=== PATIENT | male | born 1945 | race Caucasian/White ===

== ENCOUNTER → 2018-06-05 | Outpatient (CLI) | payer MEDICARE, OTHER ==
--- NOTE | 2018-06-05 12:23 | XR ---
EXAMINATION TYPE: XR knee complete RT DATE OF EXAM: 06/05/2018 COMPARISON: 12/11/2014 HISTORY: Pain TECHNIQUE: Four views are submitted. FINDINGS: Postsurgical change involving the right knee. Vascular calcifications noted. IMPRESSION: 1. Postsurgical change
== END ==
LOC: RADXRYALE 11:52
PROVIDERS: ATTEND Physician Assistant Medical
DX: M25.561 Pain in right knee (principal); Z98.890 Other specified postprocedural states

== ENCOUNTER 2018-07-04 10:17 | Day surgery (SDC) | payer MEDICARE, OTHER ==
[2018-07-03 10:22] VITALS: BMI 44.1
[~2018-07-04 10:17] MED LIST: LIDOCAINE 1% 20 ML VIAL (10MG/ML) FOR IV START INTRADERMA PRN
[2018-07-04] MEDS: PHENYLEPHRINE 10% OPHTH DROPS 5 ML BTL OP ONE ×3 (11:27→11:50)
[2018-07-04] MEDS: KETOROLAC 0.5% OPHTH DROPS 5 ML BTL OP ONE ×3 (11:30→11:53)
[2018-07-04] MEDS: CYCLOPENTOLATE 1% OPHTH SOLN 2 ML BTL OP ONE ×3 (11:33→11:56)
[2018-07-04 11:34] VITALS: RESP 16; TEMP 97.9
[2018-07-04 11:53] LABS: Glucose,Whole Blood 111 mg/dL (75-99)
[2018-07-04] MEDS: LACTATED RINGERS 1,000 ML IV SCH ×2 (11:56→12:05)
[2018-07-04] MEDS ORDERED: PROPOFOL 10 MG/ML 20 ML VIAL IV ONE (12:03)
[2018-07-04] MEDS ORDERED: HYALURONATE SODIUM INTRAOCULAR 1 EACH SYRINGE (10MG/ML) INTRAOCULA ONE (12:19)
[2018-07-04] MEDS ORDERED: BALANCED SALT IRRIG SOLN COMB2 15 ML IRRIG.SOLN IRRIGATION ONE (12:19)
[2018-07-04] MEDS ORDERED: EPINEPHrine (PF) 0.5 ML in BALANCED SALT IRRIG SOLN COMB2 500 ML IRRIGATION ONE (12:19)
--- NOTE | 2018-07-04 12:29 | P.OP ---
Date of Procedure: 07/04/18 Procedure(s) Performed: PREOPERATIVE DIAGNOSIS: Cataract, right eye. POSTOPERATIVE DIAGNOSIS: Cataract, right eye. OPERATION: Phacoemulsification of cataract, intraocular lens placement, right eye. DESCRIPTION OF PROCEDURE: The patient was taken to the operating room. Intravenous Propofol was given so as to bring about sedation. The following mixture was given for local anesthesia: 5 mL of 2% lidocaine, 5 mL of 0.75% Marcaine, and 1 mL of Wydase. Approximately 4 mL was injected in the retrobulbar space of the surgical eye. Additional 1 mL was then directed to the temporal area of the surgical eye. This was performed to allow adequate neurological block of the facial muscles. The patient was revived. The patient was prepped and draped in the usual sterile manner for the operative eye. A lid speculum was put into position. The conjunctiva was resected back from the limbus in the 12 o'clock position. Bleeding was controlled with electrocautery. A #69 blade was then used and a half-thickness scleral incision approximately 1-mm posterior to the limbus was made on bare sclera. This was shelved in the clear cornea using a crescent knife. Next a 15-degree blade was used to make a stab incision at the 3 o'clock position at the corneolimbal interface. A keratome blade was then used and the superior wound was extended into the anterior chamber. Viscoelastic was injected into the anterior chamber to maintain its form. A cystotome was used and a continuous anterior capsulotomy was made. Hydrodissection of the lens cortex using a blunt cannula and BSS was performed. A phaco probe was then introduced and a groove extending from 12 to 6 o'clock in the lens was created. A Ck wand was used through the stab incision and used to perform a divide and conquer dismantling of the cataract. An irrigation aspiration probe was utilized and any residual cortex was removed from the eye. Again, viscoelastic was injected into the anterior chamber. An Phillip posterior chamber lens implant was placed in a delivery cartridge and injected into the anterior chamber. A Sinskey hook was utilized to spin the lens into position within the capsular bag. The irrigation and aspiration probe was again introduced and any residual viscoelastic was removed from the eye. BSS was injected via blunt canula into the limbal stab incision and the anterior chamber was re-inflated. The conjunctiva was reapproximated using electrocautery. One drop of 0.25% Timoptic was placed over the corneal along with an antibiotic ophthalmic ointment. Two sterile patches and a Gould eye shield were taped into position. The patient was transported to the recovery room in stable condition. Pathology: none sent Condition: stable Disposition: same day
[2018-07-04 13:13] VITALS: BP 144/77; PULSE 78
[2018-07-04] MEDS ORDERED: BUPIVACAINE (PF) 0.75% 5 ML, HYALURONIDASE, HUMAN RECOMB 150 UNIT, LIDOCAINE 2% (PF) 10... MISCELLANE ONE ×3 (23:00)
[2018-07-04] MEDS ORDERED: GENTAMICIN/PREDNISOL AC OPHTH OINT 3.5GM OPHTHALMIC ONE (23:00)
[2018-07-04] MEDS ORDERED: TIMOLOL 0.5% OPHTH DROPS 5 ML BTL OP ONE (23:00)
== END 2018-07-04 13:30 | disposition home or self-care (01) ==
LOC: OR 10:17
PROVIDERS: ATTEND Ophthalmology
DX: H25.11 Age-related nuclear cataract, right eye (principal); E11.36 Type 2 diabetes mellitus with diabetic cataract; H40.051 Ocular hypertension, right eye; H47.321 Drusen of optic disc, right eye; I10 Essential (primary) hypertension; G47.33 Obstructive sleep apnea (adult) (pediatric); J30.2 Other seasonal allergic rhinitis; Z79.84 Long term (current) use of oral hypoglycemic drugs; Z79.899 Other long term (current) drug therapy; Z88.0 Allergy status to penicillin; Z99.89 Dependence on other enabling machines and devices
CPT/HCPCS: 66984; J3470; J2001; J0171; J2704

== ENCOUNTER 2018-08-08 07:44 | Day surgery (SDC) | payer MEDICARE, OTHER ==
[2018-08-04 15:41] VITALS: BMI 44.7
[~2018-08-08 07:44] MED LIST changes: +BUPIVACAINE (PF) 0.75% 5 ML, HYALURONIDASE, HUMAN RECOMB 150 UNIT, LIDOCAINE 2% (PF) 10... MISCELLANE ONE; +GENTAMICIN/PREDNISOL AC OPHTH OINT 3.5GM OPHTHALMIC ONE; -LIDOCAINE 1% 20 ML VIAL (10MG/ML) FOR IV START INTRADERMA PRN; +TIMOLOL 0.5% OPHTH DROPS 5 ML BTL OP ONE; +TOBRA-DEXAMET 0.3-0.1% OPHTH OINT 3.5 GM TUBE OPHTHALMIC ONE
[2018-08-08] MEDS ORDERED: LACTATED RINGERS 1,000 ML IV SCH (08:12)
[2018-08-08] MEDS ORDERED: HYDROmorphone 0.5 MG/0.5 ML SYRINGE IVP PRN (08:12)
[2018-08-08] MEDS ORDERED: ONDANSETRON 4 MG/2 ML VIAL IVP ONE (08:12)
[2018-08-08] MEDS ORDERED: LIDOCAINE 1% 20 ML VIAL (10MG/ML) FOR IV START INTRADERMA PRN (08:12)
[2018-08-08 08:29] VITALS: RESP 16; TEMP 97.1
[2018-08-08] MEDS: PHENYLEPHRINE 10% OPHTH DROPS 5 ML BTL OP ONE ×3 (08:48→09:09)
[2018-08-08] MEDS: CYCLOPENTOLATE 1% OPHTH SOLN 2 ML BTL OP ONE ×3 (08:51→09:12)
[2018-08-08] MEDS: KETOROLAC 0.5% OPHTH DROPS 5 ML BTL OP ONE ×3 (08:53→09:15)
[2018-08-08 09:38] LABS: Glucose,Whole Blood 120 mg/dL (75-99)
[2018-08-08] MEDS ORDERED: fentaNYL (PF) 50 MCG/ML 2 ML AMP ONE (09:55)
[2018-08-08] MEDS ORDERED: PROPOFOL 10 MG/ML 20 ML VIAL IV ONE (09:55)
[2018-08-08] MEDS ORDERED: MIDAZOLAM 2 MG/2 ML VIAL ONE (09:55)
[2018-08-08] MEDS ORDERED: EPINEPHrine (PF) 0.5 ML in BALANCED SALT IRRIG SOLN COMB2 500 ML IRRIGATION ONE (09:59)
[2018-08-08] MEDS ORDERED: TOBRA-DEXAMET 0.3-0.1% OPHTH OINT 3.5 GM TUBE LEFT EYE ONE (10:00)
[2018-08-08] MEDS ORDERED: HYALURONATE SODIUM INTRAOCULAR 1 EACH SYRINGE (10MG/ML) INTRAOCULA ONE (10:00)
[2018-08-08] MEDS ORDERED: BALANCED SALT IRRIG SOLN COMB2 15 ML IRRIG.SOLN INTRAOCULA ONE (10:00)
--- NOTE | 2018-08-08 10:20 | P.OP ---
Date of Procedure: 08/08/18 Procedure(s) Performed: PREOPERATIVE DIAGNOSIS: Cataract, left eye. POSTOPERATIVE DIAGNOSIS: Cataract, left eye. OPERATION: Phacoemulsification of cataract, intraocular lens placement, left eye. DESCRIPTION OF PROCEDURE: The patient was taken to the operating room. Intravenous Propofol was given so as to bring about sedation. The following mixture was given for local anesthesia: 5 mL of 2% lidocaine, 5 mL of 0.75% Marcaine, and 1 mL of Wydase. Approximately 4 mL was injected in the retrobulbar space of the surgical eye. Additional 1 mL was then directed to the temporal area of the surgical eye. This was performed to allow adequate neurological block of the facial muscles. The patient was revived. The patient was prepped and draped in the usual sterile manner for the operative eye. A lid speculum was put into position. The conjunctiva was resected back from the limbus in the 12 o'clock position. Bleeding was controlled with electrocautery. A #69 blade was then used and a half-thickness scleral incision approximately 1-mm posterior to the limbus was made on bare sclera. This was shelved in the clear cornea using a crescent knife. Next a 15-degree blade was used to make a stab incision at the 3 o'clock position at the corneolimbal interface. A keratome blade was then used and the superior wound was extended into the anterior chamber. Viscoelastic was injected into the anterior chamber to maintain its form. A cystotome was used and a continuous anterior capsulotomy was made. Hydrodissection of the lens cortex using a blunt cannula and BSS was performed. A phaco probe was then introduced and a groove extending from 12 to 6 o'clock in the lens was created. A Kc wand was used through the stab incision and used to perform a divide and conquer dismantling of the cataract. An irrigation aspiration probe was utilized and any residual cortex was removed from the eye. Again, viscoelastic was injected into the anterior chamber. An Phillip posterior chamber lens implant was placed in a delivery cartridge and injected into the anterior chamber. A Sinskey hook was utilized to spin the lens into position within the capsular bag. The irrigation and aspiration probe was again introduced and any residual viscoelastic was removed from the eye. BSS was injected via blunt canula into the limbal stab incision and the anterior chamber was re-inflated. The conjunctiva was reapproximated using electrocautery. One drop of 0.25% Timoptic was placed over the corneal along with an antibiotic ophthalmic ointment. Two sterile patches and a Gould eye shield were taped into position. The patient was transported to the recovery room in stable condition. Pathology: none sent Condition: stable Disposition: same day
[2018-08-08 10:43] VITALS: BP 123/58; PULSE 55
== END 2018-08-08 11:00 | disposition home or self-care (01) ==
LOC: OR 07:44
PROVIDERS: ATTEND Ophthalmology
DX: H25.12 Age-related nuclear cataract, left eye (principal); E11.36 Type 2 diabetes mellitus with diabetic cataract; I10 Essential (primary) hypertension; J30.2 Other seasonal allergic rhinitis; H40.059 Ocular hypertension, unspecified eye; Z88.0 Allergy status to penicillin; Z98.41 Cataract extraction status, right eye; Z96.1 Presence of intraocular lens; Z88.2 Allergy status to sulfonamides; Z88.3 Allergy status to other anti-infective agents; Z79.84 Long term (current) use of oral hypoglycemic drugs; Z79.899 Other long term (current) drug therapy
CPT/HCPCS: 66984; V2632; J2250; J3470; J2001; J0171; J3010; J2704

== ENCOUNTER → 2019-01-18 | Outpatient (CLI) | payer MEDICARE, OTHER ==
--- NOTE | 2019-01-19 08:20 | XR ---
EXAMINATION TYPE: XR shoulder complete LT DATE OF EXAM: 01/18/2019 COMPARISON: NONE HISTORY: Pain TECHNIQUE: Three views are submitted. FINDINGS: The osseous structures are intact. There is no acute fracture or dislocation. Mild hypertrophic plasencia ge of the AC joint. IMPRESSION: 1. Mild AC joint arthropathy.
== END | disposition home or self-care (01) ==
LOC: RADXRYALE 16:24
PROVIDERS: ATTEND Physician Assistant Medical
DX: M19.012 Primary osteoarthritis, left shoulder (principal)

== ENCOUNTER → 2019-05-29 | Outpatient (CLI) | payer MEDICARE, OTHER ==
--- NOTE | 2019-05-29 18:40 | XR ---
Lumbosacral spine HISTORY: Low back pain, trauma 2 weeks prior 5 views of the lumbosacral spine There is multilevel spondylosis present. Ill-defined calcification is present at the level of the L1 transverse process on the left. Suspect there is transitional vertebral body present, only 4 nonrib-b earing lumbar segments. No evident spondylolysis or spondylolisthesis. Lumbar vertebral bodies show p reserved height. Loss of disc height present at L2-3, T12-L1. Sclerosis in the posterior elements is compatible with facet arthropathy. Atherosclerotic vascular calcifications present within the visuali zed aorta. IMPRESSION: No fracture or subluxation. Degenerative disc disease, facet arthropathy, indeterminate c alcification in the left paraspinal location.
== END | disposition home or self-care (01) ==
LOC: RADXRYALE 13:56
PROVIDERS: ATTEND Physician Assistant Medical
DX: M51.37 Other intervertebral disc degeneration, lumbosacral region (principal); M46.97 Unspecified inflammatory spondylopathy, lumbosacral region
CPT/HCPCS: 72110

== ENCOUNTER 2020-12-24 10:41 | Day surgery (SDC) | payer MEDICARE, OTHER ==
[2020-12-18 15:27] VITALS: BMI 41.8
[~2020-12-24 10:41] MED LIST changes: +ALPRAZolam 0.25 MG TAB PO PRN; +ALPRAZolam 0.5 MG TAB PO PRN; +ASPIRIN 325 MG TAB PO ONE; +ATORVASTATIN 80 MG TAB PO ONE; -BUPIVACAINE (PF) 0.75% 5 ML, HYALURONIDASE, HUMAN RECOMB 150 UNIT, LIDOCAINE 2% (PF) 10... MISCELLANE ONE; -GENTAMICIN/PREDNISOL AC OPHTH OINT 3.5GM OPHTHALMIC ONE; +HEPARIN SODIUM,PORCINE 10,000 UNIT in SODIUM CHLORIDE 0.9% 1,000 ML IRRIGATION PRN; +HEPARIN SODIUM,PORCINE 2,500 UNIT in SODIUM CHLORIDE 0.9% 250 ML IRRIGATION PRN; +NITROGLYCERIN SL TABS 0.4 MG TAB SUBLINGUAL PRN; +SODIUM CHLORIDE 0.9% 1,000 ML in EMPTY BAG 1 BAG IV ONE; -TIMOLOL 0.5% OPHTH DROPS 5 ML BTL OP ONE; -TOBRA-DEXAMET 0.3-0.1% OPHTH OINT 3.5 GM TUBE OPHTHALMIC ONE
[2020-12-24 11:03] VITALS: TEMP 97.8
[2020-12-24 11:13] LABS: Glucose,Whole Blood 151 mg/dL (75-99)
[2020-12-24] MEDS ORDERED: fentaNYL (PF) 50 MCG/ML 2 ML AMP ONE (11:36)
[2020-12-24] MEDS ORDERED: BENZOCAINE SPRAY 1 CAN TOPICAL ONE (11:43)
[2020-12-24] MEDS ORDERED: fentaNYL (PF) 50 MCG/ML 2 ML AMP IVP ONE (11:46)
[2020-12-24] MEDS ORDERED: MIDAZOLAM 2 MG/2 ML VIAL IVP ONE ×2 (11:46→12:20)
[2020-12-24] MEDS ORDERED: LIDOCAINE 1% INJ 10MG/ML (20 ML MDV) ONE (11:46)
[2020-12-24 11:52] VITALS: RESP 16
[2020-12-24] MEDS ORDERED: LIDOCAINE 1% INJ 10MG/ML (20 ML MDV) SQ ONE (12:08)
[2020-12-24] MEDS ORDERED: HYDROmorphone 0.5 MG/0.5 ML SYRINGE IVP ONE (12:22)
[2020-12-24] MEDS ORDERED: IOPAMIDOL-370 125ML BTL INJ ONE (12:23)
--- NOTE | 2020-12-24 14:40 | ECHOT ---
TRANSESOPHAGEAL ECHOCARDIOGRAM INDICATION: Aortic stenosis. PROCEDURE NOTE: After obtaining informed consent, transesophageal echocardiogram is performed in left lateral position using an Omni plane probe. Local and IV sedation were obtained by xylocaine spray, 2 mg of Versed and 50 mcg of fentanyl. The patient tolerated the procedure well without any obvious immediate complication. 2D color Doppler evaluation of the valve had been done. Patient received moderate conscious sedation and total sedation time was 10 minutes. FINDINGS: Aortic valve aortic valve is a 3-leaflet valve that appears calcified with right and left coronary cusps fused with restricted leaflet mobility. There is severe restriction in leaflet mobility by planimetry technique. The valve area is 0.6 squared cm suggestive of severe aortic stenosis. There is mild aortic regurgitation noted. Mitral valve appears anatomically normal. There is mild mitral regurgitation noted. Tricuspid valve appears normal. Left ventricle has normal size and systolic function. Left atrium appears enlarged. Right atrium and right ventricle seen within normal limits. Interatrial septum, there is no evidence of [id number] shunt by color-flow Doppler or ikxrs-[id number] shunt by agitated saline contrast study. CONCLUSION: 1. Severe aortic stenosis involving what appears like a tricuspid aortic valve that is calcified and has restricted leaflet mobility. 2. Normal LV function. PLAN: The patient will need aortic valve replacement and patient will need aortic valve replacement. MMODL / IJN: [id number] /
[2020-12-24 15:58] VITALS: BP 127/69; PULSE 68
--- NOTE | 2020-12-24 17:42 | LTR ---
DATE OF SERVICE: 12/24/2020 Dear Martínez: I performed JORI and cardiac catheterization on Gilmar Ray and a detailed procedure note is enclosed for your records. In brief, the transesophageal echo shows severe aortic stenosis involving a 3-leaflet valve that is calcified and shows severe restriction in leaflet mobility. Cardiac catheterization showed a focal stenosis involving the circumflex coronary artery. The plan at this stage is to seek opinion from the surgeon regarding aortic valve replacement with bypass or perform TAVR and percutaneously revascularized the circ. Thank you for allowing me to participate in the care of this pleasant gentleman. Sincerely, VALDO / DIONNAN: [id number] /
--- NOTE | 2020-12-24 17:42 | CC ---
CARDIAC CATHETERIZATION REPORT INDICATION: Severe aortic stenosis. PROCEDURE NOTE: After obtaining informed consent, left heart catheterization and coronary angiogram were performed via the right femoral artery using standard Rojelio catheters. Patient tolerated the procedure well without any obvious immediate complications. The patient had some hip and back pain and received sedation on the table. The patient received moderate conscious sedation. Total sedation time was 15 minutes. FINDINGS: HEMODYNAMICS: Central aortic pressure is 128/76. LEFT VENTRICULOGRAM: Not performed. ANGIOGRAPHIC DATA: LEFT MAIN CORONARY ARTERY: Left main coronary artery is a normal-sized vessel and is free of stenosis. Divides into left anterior descending coronary artery and circumflex coronary artery. LEFT ANTERIOR DESCENDING CORONARY ARTERY: LAD shows mild nonobstructive coronary artery disease. CIRCUMFLEX CORONARY ARTERY: Circumflex coronary artery gives off a large caliber OM branch in and that has a focal 70% stenosis. RIGHT CORONARY ARTERY: Right coronary artery is a large dominant vessel and is free of significant disease. CONCLUSION: Focal stenotic lesion within the OM branch. PLAN: Patient has severe aortic stenosis by transesophageal echo and his recent clinical presentation to me was with congestive heart failure. He needs aortic valve replacement. We are going to get an opinion, whether this is to be done surgically or percutaneously. If it is to be done percutaneously, then we will address the circumflex coronary artery lesion with an angioplasty. If is done surgically, then patient may undergo aortic valve replacement with single-vessel bypass. I am going to get an opinion from a surgeon and an patent drafter. I discussed these issues at length with the patient. He understands and is in agreement with the plans. MMODL / IJN: [id number] /
--- NOTE | 2020-12-25 13:57 | HP ---
HISTORY AND PHYSICAL Gilmar is a 74-year-old gentleman with history of fnr-idroexz-lecdreipe diabetes, hypertension and aortic stenosis, who recently presented to me with shortness of breath and was advised to undergo cardiac catheterization and transesophageal echo primarily to assess the aortic stenosis and sending for aortic valve replacement. His transesophageal echo revealed severe aortic stenosis and the left heart catheterization revealed a significant stenosis involving circumflex coronary artery. I reviewed angiographic data with Dr. Carbone, minister helper and the plan at this stage is to perform angioplasty of circumflex coronary artery and refer the patient and perform aortic valve replacement percutaneously. I discussed these issues with the patient's . They understand and are in agreement with the plans. Patient's predominant symptom at the moment is in the form of shortness of breath with activity. He does not have any angina. He is currently on aspirin, lisinopril, metformin, Actos, and glipizide. I will add a statin to what he is on. The patient will undergo angioplasty next week. Then he will be presented at the TAVR clinic and in the event that he has to have surgical aortic valve replacement, at least he does not need coronary artery bypass. PAST MEDICAL HISTORY: Significant for aortic stenosis, diabetes, hypertension, dyslipidemia. MEDICATIONS: Medications at home included aspirin, multivitamin, metformin, glipizide, lisinopril, Januvia, fish oil. ALLERGIES: Denies any. FAMILY HISTORY: Negative for premature coronary artery disease. SOCIAL HISTORY: Negative for current smoking, EtOH abuse, or drug abuse. REVIEW OF SYSTEMS: Is significant for bilateral leg edema primarily related to venous insufficiency and shortness of breath with activity. LABS: Recent labs on him showed a hemoglobin of 12.6, platelet count is 205. Potassium is 4. Creatinine is 1.1. BNP was elevated at 1000. His lipid profile shows that the LDL cholesterol is 109, LDL cholesterol is 109. ASSESSMENT: 1. Significant coronary artery disease involving circumflex coronary artery. 2. Severe aortic stenosis. PLAN: Patient will undergo angioplasty of the circumflex coronary artery and then will be evaluated for TAVR. MMODL / IJN: [id number] /
== END 2020-12-24 16:57 | disposition home or self-care (01) ==
LOC: CATHCVL 10:41
PROVIDERS: ATTEND Internal Medicine Cardiovascular Disease
DX: I35.0 Nonrheumatic aortic (valve) stenosis (principal); I25.10 Atherosclerotic heart disease of native coronary artery without angina pectoris; Z82.49 Family history of ischemic heart disease and other diseases of the circulatory system; E11.9 Type 2 diabetes mellitus without complications; I10 Essential (primary) hypertension; Z79.899 Other long term (current) drug therapy; Z79.82 Long term (current) use of aspirin; E78.2 Mixed hyperlipidemia; I49.3 Ventricular premature depolarization
CPT/HCPCS: 93312; 93320; 93325; 93454; C1769 ×2; C1760; C1894; J2250; J2001; J3010; J1170; Q9967

== ENCOUNTER 2020-12-29 10:03 | Day surgery (SDC) | payer MEDICARE, OTHER ==
[2020-12-29 11:07] LABS: Glucose,Whole Blood 144 mg/dL (75-99)
[2020-12-29] MEDS ORDERED: SODIUM CHLORIDE 0.9% 1,000 ML IV ONE (11:13)
[2020-12-29 11:15] LABS: Basophils % (A) 0 %; Eosinophils # (A) 0.2 k/uL (0-0.7); Eosinophils % (A) 2 %; HCT 37.5 % (39.0-53.0); HGB 12.7 gm/dL (13.0-17.5); Lymphocytes % (A) 11 %; Mean Platelet Volume 7.6; Monocytes # (A) 0.6 k/uL (0-1.0); Monocytes % (A) 7 %; Neutrophils % (A) 78 %; Platelet Count 171 k/uL (150-450); RBC 3.99 m/uL (4.30-5.90); RDW 12.5 % (11.5-15.5)
[2020-12-29 12:10] LABS: Calcium 9.4 mg/dL (8.4-10.2); Potassium 4.1 mmol/L (3.5-5.1)
[2020-12-29] MEDS ORDERED: VERAPAMIL 2.5 MG/ML 2 ML AMP ONE (12:12)
[2020-12-29] MEDS ORDERED: LIDOCAINE 1% INJ 10MG/ML (20 ML MDV) ONE (12:12)
[2020-12-29] MEDS ORDERED: HYDROmorphone 0.5 MG/0.5 ML SYRINGE IVP ONE ×2 (12:21→12:47)
[2020-12-29] MEDS: MIDAZOLAM 2 MG/2 ML VIAL IV ONE ×2 (12:21→12:32)
[2020-12-29] MEDS ORDERED: LIDOCAINE 1% INJ 10MG/ML (20 ML MDV) SQ ONE (12:30)
[2020-12-29] MEDS ORDERED: VERAPAMIL SYRINGE (5 MG/10 ML) INTRAARTER ONE (12:32)
[2020-12-29] MEDS ORDERED: fentaNYL (PF) 50 MCG/ML 2 ML AMP ONE (12:56)
[2020-12-29] MEDS ORDERED: fentaNYL (PF) 50 MCG/ML 2 ML AMP IV ONE (12:58)
[2020-12-29] MEDS: NITROGLYCERIN 1000MCG/10ML SYRINGE IV ONE ×2 (13:11→13:19)
[2020-12-29] MEDS ORDERED: IOPAMIDOL-370 125ML BTL INJ ONE (13:18)
[2020-12-29] MEDS ORDERED: TICAGRELOR 90 MG TAB ONE ×2 (13:20)
[2020-12-29] MEDS ORDERED: IOPAMIDOL-370 100ML BTL INJ ONE (13:24)
[2020-12-29] MEDS ORDERED: TICAGRELOR 90 MG TAB PO ONE (13:24)
[2020-12-29] MEDS ORDERED: SODIUM CHLORIDE 0.9% 1,000 ML IV SCH (13:30)
[2020-12-29] MEDS ORDERED: MAG HYDROX/AL HYDROX/SIMETH 30 ML CUP PO PRN (13:30)
[2020-12-29] MEDS ORDERED: NITROGLYCERIN SL TABS 0.4 MG TAB SUBLINGUAL PRN (13:30)
[2020-12-29] MEDS ORDERED: ZOLPIDEM 5 MG TAB PO PRN (13:30)
[2020-12-29] MEDS ORDERED: RX INFO: IV CONTRAST WAS GIVEN 1 EACH MISC MISCELLANE PRN (13:30)
[2020-12-29] MEDS ORDERED: ATROPINE SULFATE 0.1 MG/ML 10ML SYRINGE IV PRN (13:30)
[2020-12-29] MEDS ORDERED: ONDANSETRON 4 MG/2 ML VIAL ONE ×2 (13:51→16:30)
[2020-12-29 16:40] LABS: Glucose,Whole Blood 108 mg/dL (75-99)
[2020-12-29] MEDS: NATEGLINIDE PO SCH (17:31)
--- NOTE | 2020-12-29 17:41 | PTCA ---
PERCUTANEOUSTRANS CORORONARY ANGIOGRAPHY DATE OF SERVICE: 12/29/2020 PERFORMING PHYSICIAN: sOcar Carbone MD. PROCEDURE PERFORMED: 1. Successful stenting of the distal left circumflex coronary artery using 2.75 x 18 mm Xience drug-eluting stent with an excellent angiographic result. 2. Successful stenting of the mid left circumflex using 3.0 x 12 mm Xience drug- eluting stent with an excellent angiographic result. INDICATION: This is a 75-year-old gentleman who was diagnosed recently with severe coronary artery disease involving the left circumflex coronary artery. He continues to be symptomatic. He is Dr. Carl's patient. Because of that, PCI of the left circumflex was advised. APPROACH: Right radial artery. COMPLICATION: None. LEVEL OF SEDATION: Moderate with sedation length of 50 minutes. PROCEDURE: After obtaining an informed consent, the patient was brought to the cardiac woodworking shop laborer. The right radial artery was cannulated using micropuncture technique and a micropuncture wire passed easily. Then I placed a 6-Moldovan sheath at the right radial artery. Anticoagulation was initiated and continued using heparin with continuous ACT monitoring throughout the procedure. I gave the patient also at the beginning of the procedure, 2 mg of verapamil IA. Subsequently, I did engage the left main using a JL3.5 guiding catheter. After that I did wire the left circumflex using a run-through wire. Attempting advancing stent for direct stenting was unsuccessful with advancing the stent from the left main to the left circumflex coronary artery. At that point, I did use Godzilla and with that I was able to get the stent to the left circumflex but the stent would not cross the lesion. Because of that, the stent was pulled out. I did balloon angioplasty initially using 1.5 mm balloon and subsequently using 2.0 mm balloon. Again advancing the stent was unsuccessful. After that I did pull the Godzilla out and I placed a sophia wire which was an Ironman. With that I was able to get the stent over the whisper over the run-through wire with an Ironman as a sophia wire to the left circumflex where the stent was positioned under fluoroscopy guidance and deployed under 14 atmospheres for 20 seconds. The following angiogram showed good angiographic results at the lesion but proximal to the lesion, there was a hazy area that appeared to be in the range of 50% to 60%. I decided to cover. I deployed a 3 0 x 12 mm another stent there. The following angiogram showed excellent angiographic results and the procedure was completed without any complication. POSTPROCEDURE MANAGEMENT: 1. Dual anti-platelet therapy. 2. Aggressive cholesterol control. 3. Risk factor modifications. 4. Follow up with the patient. VALDO / CHRISTIANO: [id number] /
[2020-12-29] MEDS: glipiZIDE 10 MG TAB PO SCH (17:58)
[2020-12-29] MEDS: ASCORBIC ACID 500 MG TAB PO SCH ×2 (17:58→20:07)
[2020-12-29] MEDS ORDERED: NON FORMULARY DRUG (Omega-3 Fatty Acids/Fish Oil [Fish Oil 1,000 Mg Softgel] 1 EACH Capsul PO SCH (18:00)
[2020-12-29] MEDS ORDERED: diphenhydrAMINE 25 MG CAP PO PRN (18:18)
[2020-12-29 19:51] LABS: Glucose,Whole Blood 165 mg/dL (75-99)
[2020-12-29] MEDS: TICAGRELOR 90 MG TAB PO SCH (20:07)
[2020-12-29] MEDS ORDERED: PRAVASTATIN SODIUM 20 MG TAB PO SCH (21:00)
[2020-12-29] MEDS ORDERED: NON FORMULARY DRUG (Cinnamon Bark [Cinnamon] 500 MG Capsule) PO SCH (21:00)
[2020-12-30 06:07] LABS: Glucose,Whole Blood 84 mg/dL (75-99)
[2020-12-30] MEDS: NATEGLINIDE PO SCH (06:13)
[2020-12-30] MEDS: glipiZIDE 10 MG TAB PO SCH (06:14)
[2020-12-30 08:19] VITALS: BP 141/67; PULSE 61; RESP 16; TEMP 98
[2020-12-30] MEDS ORDERED: LUTEIN 6 MG PO SCH (09:00)
[2020-12-30] MEDS ORDERED: GARLIQUE PO SCH (09:00)
[2020-12-30] MEDS ORDERED: FERROUS SULFATE 325 MG TAB PO SCH (09:00)
[2020-12-30] MEDS ORDERED: MULTIVITAMINS, THERA 1 EACH TAB PO SCH (09:00)
[2020-12-30] MEDS ORDERED: lisinopriL 20 MG TAB PO SCH (09:00)
[2020-12-30] MEDS ORDERED: LINAGLIPTIN 5 MG TABLET PO SCH (09:00)
[2020-12-30] MEDS ORDERED: NON FORMULARY DRUG (Cranberry Fruit Extract [Cranberry] 500 MG Tablet) PO SCH (09:00)
[2020-12-30] MEDS ORDERED: LORATADINE 10 MG TAB PO SCH (09:00)
[2020-12-30] MEDS ORDERED: CYANOCOBALAMIN 500 MCG TAB PO SCH (09:00)
[2020-12-30] MEDS ORDERED: PIOGLITAZONE 45 MG TAB PO SCH (09:00)
[2020-12-30] MEDS ORDERED: ASPIRIN 81 MG PO SCH (09:00)
[2020-12-30] MEDS ORDERED: FUROSEMIDE 20 MG TAB PO SCH (09:00)
[2020-12-30] MEDS ORDERED: POTASSIUM CHLORIDE ER 10 MEQ TAB.ER.PRT PO SCH (09:00)
[2020-12-30] MEDS ORDERED: NON FORMULARY DRUG (Ubidecarenone [Co Q-10] 100 MG Capsule) PO SCH (09:00)
[2020-12-30] MEDS: TICAGRELOR 90 MG TAB PO SCH (09:06)
[2020-12-30] MEDS: ASCORBIC ACID 500 MG TAB PO SCH (09:06)
[2020-12-30] MEDS ORDERED: CLOPIDOGREL 75 MG TAB PO STA (10:11)
[2020-12-30 10:12] VITALS: BMI 40.3
--- NOTE | 2020-12-30 11:05 | P.DS ---
Providers Attending physician: Oscar Carbone Consults: 12/29/20 13:30 Consult Physician Routine Consulting Provider: [facility] Consult Reason/Comments: Post Interventional patient Do you want consulting provider notified?: Already Contacted [facility]: [facility] Course: This is a 75-year-old male, patient of Dr. Whaley, who underwent cardiac catheterization yesterday with Dr. Francisco with PCI to the circumflex. Patient examined at the bedside. Patient denies chest pain or pressure. He denies shortness of breath. Patients brilinta was $100 a month. The patient was switched to aspirin and plavix. Right radial cath site with pulse present. Patient is stable for discharge home today. Please see EMR for further hospital course details. Discharge Diagnosis 1. CAD, s/p PCI to circumflex Nurse practitioner note has been reviewed by physician. Signing provider agrees with the documented findings, assessment, and plan of care. Plan - Discharge Summary Discharge Rx Participant: No New Discharge Prescriptions: New Clopidogrel Bisulfate [Plavix] 75 mg PO DAILY #90 tab No Action Multivitamins, Thera [Multivitamin (formulary)] 1 tab PO DAILY Ascorbic Acid [Vitamin C] 1,000 mg PO TID Ferrous Sulfate [Feosol] 325 mg PO DAILY sitaGLIPtin [Januvia] 100 mg PO DAILY Pioglitazone [Actos] 45 mg PO DAILY Nateglinide [Starlix] 120 mg PO AC-TID glipiZIDE [Glucotrol] 10 mg PO AC-BID lisinopriL 20 mg PO QAM metFORMIN HCL 1,000 mg PO BID Ubidecarenone [Co Q-10] 100 mg PO DAILY [place]ba-3 Fatty Acids/Fish Oil [Fish Oil 1,000 mg Softgel] 1 each PO QID Lutein 6 mg PO DAILY Garlique 1 tab PO DAILY Cyanocobalamin (Vitamin B-12) [Vitamin B-12] 1,000 mcg PO DAILY Cranberry Fruit Extract [Cranberry] 500 mg PO DAILY Cinnamon Bark [Cinnamon] 1,000 mg PO BID Aspirin [Adult Low Dose Aspirin EC] 81 mg PO DAILY Furosemide [Lasix] 20 mg PO DAILY Loratadine [Claritin] 10 mg PO DAILY Potassium Chloride ER [K-Dur 10] 10 meq PO DAILY Pravastatin Sodium [Pravachol] 10 mg PO HS Discharge Medication List Ascorbic Acid [Vitamin C] 1,000 mg PO TID 01/14/19 [History] Aspirin [Adult Low Dose Aspirin EC] 81 mg PO DAILY 07/03/18 [History] Cinnamon Bark [Cinnamon] 1,000 mg PO BID 07/03/18 [History] Cranberry Fruit Extract [Cranberry] 500 mg PO DAILY 07/03/18 [History] Cyanocobalamin (Vitamin B-12) [Vitamin B-12] 1,000 mcg PO DAILY 07/03/18 [History] Ferrous Sulfate [Feosol] 325 mg PO DAILY 07/03/18 [History] Garlique 1 tab PO DAILY 07/03/18 [History] Lutein 6 mg PO DAILY 07/03/18 [History] Multivitamins, Thera [Multivitamin (formulary)] 1 tab PO DAILY 07/03/18 [History] Nateglinide [Starlix] 120 mg PO AC-TID 07/03/18 [History] [place]-3 Fatty Acids/Fish Oil [Fish Oil 1,000 mg Softgel] 1 each PO QID 07/03/18 [History] Pioglitazone [Actos] 45 mg PO DAILY 07/03/18 [History] Ubidecarenone [Co Q-10] 100 mg PO DAILY 07/03/18 [History] glipiZIDE [Glucotrol] 10 mg PO AC-BID 07/03/18 [History] lisinopriL 20 mg PO QAM 07/03/18 [History] metFORMIN HCL 1,000 mg PO BID 07/03/18 [History] sitaGLIPtin [Januvia] 100 mg PO DAILY 07/03/18 [History] Furosemide [Lasix] 20 mg PO DAILY 12/18/20 [History] Potassium Chloride ER [K-Dur 10] 10 meq PO DAILY 12/18/20 [History] Loratadine [Claritin] 10 mg PO DAILY 12/25/20 [History] Pravastatin Sodium [Pravachol] 10 mg PO HS 12/25/20 [History] Clopidogrel Bisulfate [Plavix] 75 mg PO DAILY #90 tab 12/30/20 [Rx] Follow up Appointment(s)/Referral(s): Rishi Carl MD [STAFF PHYSICIAN] - 1 Week Patient Instructions/Handouts: Coronary Intravascular Stent Placement (DC)
== END 2020-12-30 12:54 | disposition home or self-care (01) ==
LOC: CATHCVL 10:03 → 3SCARD 16:11 → CATHCVL 12-30 12:54
PROVIDERS: ATTEND Internal Medicine Interventional Cardiology
DX: I25.10 Atherosclerotic heart disease of native coronary artery without angina pectoris (principal); I35.0 Nonrheumatic aortic (valve) stenosis; I11.0 Hypertensive heart disease with heart failure; I50.42 Chronic combined systolic (congestive) and diastolic (congestive) heart failure; E78.5 Hyperlipidemia, unspecified; E11.9 Type 2 diabetes mellitus without complications; Z82.49 Family history of ischemic heart disease and other diseases of the circulatory system; Z79.84 Long term (current) use of oral hypoglycemic drugs; Z79.82 Long term (current) use of aspirin; Z79.818 Long term (current) use of other agents affecting estrogen receptors and estrogen levels; Z88.0 Allergy status to penicillin
CPT/HCPCS: 80048; 82565; 85025; C9600; C1769 ×4; C1887 ×2; C1894; C1725 ×2; C1874; J2250; J2405; J2001; J3010; J1644; J1170; Q9967 ×2

== ENCOUNTER → 2021-02-19 | Outpatient (CLI) | payer MEDICARE, OTHER ==
[2021-02-19 09:33] LABS: INR 0.9 (<1.2); Partial Thromboplastin Time 26.1 sec (22.0-30.0); Prothrombin Time 10.1 sec (9.0-12.0)
[2021-02-19 09:34] LABS: Appearance,Urine Clear (Clear); Bilirubin,Urine Negative (Negative); Blood,Urine Negative (Negative); Color,Urine Light Yellow; Glucose,Urine (UA) Negative (Negative); Hyaline Casts,Urine 9 /lpf (0-2); Ketones,Urine Negative (Negative); Leukocyte Esterase,Urine Moderate (Negative); Nitrite,Urine Negative (Negative); Protein,Urine Negative (Negative); RBC,Urine <1 /hpf (0-5); Specific Gravity,Urine 1.008 (1.001-1.035); Squamous Epithelial Cell,Urine <1 /hpf (0-4); Urobilinogen,Urine <2.0 mg/dL (<2.0); WBC,Urine 4 /hpf (0-5)
[2021-02-19 10:05] LABS: Basophils % (A) 0 %; Eosinophils # (A) 0.2 k/uL (0-0.7); Eosinophils % (A) 4 %; HCT 36.2 % (39.0-53.0); Lymphocytes # (A) 0.9 k/uL (1.0-4.8); Lymphocytes % (A) 17 %; MCH 31.7 pg (25.0-35.0); MCHC 33.2 g/dL (31.0-37.0); MCV 95.5 fL (80.0-100.0); Mean Platelet Volume 7.6; Monocytes # (A) 0.4 k/uL (0-1.0); Monocytes % (A) 8 %; Neutrophils # (A) 3.6 k/uL (1.3-7.7); Neutrophils % (A) 69 %; Platelet Count 184 k/uL (150-450); RBC 3.79 m/uL (4.30-5.90); RDW 12.8 % (11.5-15.5); WBC 5.2 k/uL (3.8-10.6)
[2021-02-19 10:08] LABS: ALT 18 U/L (4-49); AST 27 U/L (17-59); African American GFR (CKD) 53 (>60 ml/min/1.73 sqM); Albumin/Globulin Ratio 1.6; Alkaline Phosphatase 81 U/L (38-126); Anion Gap 8 mmol/L; Bilirubin,Unconjugated 0.4 mg/dL (0.0-1.1); Blood Urea Nitrogen 31 mg/dL (9-20); Calcium 9.5 mg/dL (8.4-10.2); Carbon Dioxide 26 mmol/L (22-30); Chloride 104 mmol/L (98-107); Globulin 2.5 g/dL; Glucose 155 mg/dL (74-99); Magnesium 1.8 mg/dL (1.6-2.3); Non-African American GFR(CKD) 46 (>60 ml/min/1.73 sqM); Potassium 3.8 mmol/L (3.5-5.1); Sodium 138 mmol/L (137-145); Total Bilirubin 0.4 mg/dL (0.2-1.3); Total Protein 6.5 g/dL (6.3-8.2)
[2021-02-19 16:53] LABS: Hemoglobin A1C 6.6 % (4.0-6.0)
--- NOTE | 2021-02-19 18:01 | ECHOF ---
Referral Reason:TAVR pt MEASUREMENTS -------- HEIGHT: 182.9 cm WEIGHT: 137.4 kg BP: IVSd: 1.5 cm (0.6 - 1.1) LVIDd: 5.2 cm (3.9 - 5.3) LVPWd: 1.9 cm (0.6 - 1.1) EDV(Teich): 129 ml IVSs: 1.9 cm LVIDs: 4.1 cm LVPWs: 1.9 cm %IVS Thck: 26 % ESV(Teich): 76 ml EF(Teich): 41 % %FS: 20 % SV(Teich): 53 ml RVIDd: 3.7 cm (< 3.3) LALs A4C: 5.7 cm LAAs A4C: 26.3 cm LAESV A-L A4C: 103 ml LAESV MOD A4C: 94 ml LALs A2C: 6.5 cm LAAs A2C: 33.2 cm LAESV A-L A2C: 144 ml LAESV MOD A2C: 137 ml LAESV(A-L): 130 ml LAESV Index (A-L): 51.10 ml/m MV E Jesus: 0.42 m/s MV DecT: 432 ms MV Dec Jasper: 1.0 m/s MV A Jesus: 0.84 m/s MV E/A Ratio: 0.51 MV PHT: 125 ms LVOT Vmax: 0.95 m/s LVOT maxP.63 mmHg LVOT Vmax: 1.00 m/s LVOT Vmean: 0.68 m/s LVOT maxP.98 mmHg LVOT meanP.06 mmHg LVOT Env.Ti: 341 ms LVOT VTI: 23.3 cm AV Vmax: 3.74 m/s AV maxP.99 mmHg AV Vmax: 3.83 m/s AV Vmean: 2.72 m/s AV maxP.60 mmHg AV meanP.76 mmHg AV Env.Ti: 406 ms AV VTI: 109.4 cm AR Vmax: 3.20 m/s AR maxP.87 mmHg AR PHT: 503 ms AR Dec Time: 1734 ms AR Dec Jasper: 1.8 m/s TR Vmax: 2.54 m/s TR maxP.86 mmHg RAP: 5.00 mmHg RVSP: 30.86 mmHg FINDINGS -------- Sinus rhythm. Morbid Obesity The left ventricular size is normal. There is moderate concentric left ventricular hypertrophy. O verall left ventricular systolic function is low-normal with, an EF between 50 - 55 %. The right ventricle is mildly enlarged. LA is severely dilated >40 ml/m2 The right atrial size is normal. There is mild aortic regurgitation. There is severe aortic stenosis present. Peak/mean gradient a cross the Aortic Valve is 58.60mmHg / 32.76mmHg. Mild mitral annular calcification present. Mild mitral regurgitation is present. Mild tricuspid regurgitation present. Right ventricular systolic pressure is normal at < 35 mmHg. The pulmonic valve was not well visualized. There is no pericardial effusion. CONCLUSIONS -------- 1. The left ventricular size is normal. 2. There is moderate concentric left ventricular hypertrophy. 3. Overall left ventricular systolic function is low-normal with, an EF between 50 - 55 %. 4. The right ventricle is mildly enlarged. 5. LA is severely dilated >40 ml/m2 6. The right atrial size is normal. 7. There is mild aortic regurgitation. 8. There is severe aortic stenosis present. 9. Peak/mean gradient across the Aortic Valve is 58.60mmHg / 32.76mmHg. 10. Mild mitral annular calcification present. 11. Mild mitral regurgitation is present. 12. Mild tricuspid regurgitation present. 13. The pulmonic valve was not well visualized. 14. There is no pericardial effusion. BRICK OFFBEARER: Elisabeth Pérez RDCS
[2021-02-20 01:09] LABS: Chol/HDL Ratio 2.98; Cholesterol 152 mg/dL (0-200); LDL Cholesterol,Calculated 74.8 mg/dL (0.0-131.0)
== END | disposition home or self-care (01) ==
LOC: LABWHC1 08:35
PROVIDERS: ATTEND Thoracic Surgery (Cardiothoracic Vascular Surgery)
DX: Z01.818 Encounter for other preprocedural examination (principal); E07.9 Disorder of thyroid, unspecified; I35.0 Nonrheumatic aortic (valve) stenosis; E78.5 Hyperlipidemia, unspecified; E11.9 Type 2 diabetes mellitus without complications; N28.9 Disorder of kidney and ureter, unspecified; R35.0 Frequency of micturition; R58 Hemorrhage, not elsewhere classified; E87.8 Other disorders of electrolyte and fluid balance, not elsewhere classified; Z79.899 Other long term (current) drug therapy; I44.0 Atrioventricular block, first degree; I51.7 Cardiomegaly; R94.31 Abnormal electrocardiogram [ECG] [EKG]
CPT/HCPCS: 36415; 80053; 80061; 81001; 82248; 83036; 83735; 83880; 84443; 85025; 85610; 85730; 87086; 93005; 93306

== ENCOUNTER → 2021-02-27 | Outpatient (CLI) | payer MEDICARE, OTHER ==
[~2021-02-27] MED LIST changes: -ALPRAZolam 0.25 MG TAB PO PRN; -ALPRAZolam 0.5 MG TAB PO PRN; -ASPIRIN 325 MG TAB PO ONE; -ATORVASTATIN 80 MG TAB PO ONE; -HEPARIN SODIUM,PORCINE 10,000 UNIT in SODIUM CHLORIDE 0.9% 1,000 ML IRRIGATION PRN; -HEPARIN SODIUM,PORCINE 2,500 UNIT in SODIUM CHLORIDE 0.9% 250 ML IRRIGATION PRN; -NITROGLYCERIN SL TABS 0.4 MG TAB SUBLINGUAL PRN; +SODIUM CHLORIDE 0.9% 1,000 ML IV NR; -SODIUM CHLORIDE 0.9% 1,000 ML in EMPTY BAG 1 BAG IV ONE; +SODIUM CHLORIDE 0.9% 500 ML 500 ML in EMPTY BAG 1 BAG IV PRN
[2021-02-27 08:27] VITALS: BP 131/69; PULSE 55; RESP 18; TEMP 97.5
== END ==
LOC: PROCWHC3 08:18
PROVIDERS: ATTEND Thoracic Surgery (Cardiothoracic Vascular Surgery)
DX: I35.1 Nonrheumatic aortic (valve) insufficiency (principal); Z88.2 Allergy status to sulfonamides; Z88.1 Allergy status to other antibiotic agents; Z88.8 Allergy status to other drugs, medicaments and biological substances
CPT/HCPCS: 36415; 82565; 84520; 96360; 96361

== ENCOUNTER → 2021-02-27 | Outpatient (CLI) | payer MEDICARE, OTHER ==
--- NOTE | 2021-03-02 07:11 | CT ---
EXAMINATION TYPE: CT TAVR Planning DATE OF EXAM: 02/27/2021 HISTORY: 75-year-old male Nonrheumatic aortic (valve) insufficiency. CT DLP: 3050.3 mGycm Automated Exposure Control for Dose Reduction was Utilized. CONTRAST: CT scan of the chest, abdomen and pelvis is performed with IV Contrast, patient injected wi th 125ml mL of Isovue 370. COMPARISON: None TECHNIQUE: Helical imaging obtained through the chest, abdomen and pelvis during arterial phase kb luis a administration of radiographic contrast intravenously. FINDINGS: See report from [employer] regarding preprocedural planning CHEST: Lower Neck and Thyroid: The right lobe of the thyroid gland is somewhat asymmetrically larger. Questi onable clinical significance. Lungs: No consolidation or pleural effusion. Stranding dependent areas of atelectasis are present darya aterally without consolidation or pleural effusion. 4 mm subpleural pulmonary nodule posterior left b ase, axial image 46. 5 mm left basilar pulmonary nodule, axial image 50. 6-12 month follow-up CT can be considered. Central Airway: Mild diffuse bronchial wall thickening may reflect bronchitis or chronic asthma. Pleura: No significant findings Pulmonary Arteries: Right and left main pulmonary arteries enlarged up to 3.1 and 2.7 cm, respectivel y, suggesting underlying pulmonary hypertension. Heart and Pericardium: Borderline heart size. Three-vessel coronary artery calcifications are present . No pericardial effusion. Aortic valve calcifications are noted. Scattered mild atherosclerotic calc ifications are present throughout the aorta. Lymph Nodes: Calcified right hilar lymph nodes compatible with prior granulomatous disease. No thorac ic lymph adenopathy by CT size criteria. Mediastinum & Esophagus: No significant findings ABDOMEN/PELVIS: Please note arterial phase of the imaging limits detailed evaluation of the solid abdominal organs. Liver: No significant findings Spleen: No significant findings Kidneys: No significant findings Adrenal Glands: Minimal thickening left adrenal gland without discrete nodularity. Pancreas: No significant findings Gallbladder: 1.7 cm gallstone. No abnormal gallbladder distention. Bowel and Mesentery: Mild stool burden. Normal appendix. Left-sided colonic diverticulosis. No bakari lonic inflammatory change. Lymph Nodes: No mesenteric or retroperitoneal lymphadenopathy. There are a few borderline enlarged in guinal lymph nodes measuring up to 2.1 cm on the right, coronal image 14 and 1.5 cm on the left, axia l image 136. Urinary Bladder: Moderate circumferential bladder wall thickening may be part relate to nondistention . Pelvic Organs: Prostate gland measures 4.9 cm wide with some central calcifications. No abnormal flui d collection the pelvis. Other: Omental fat-containing umbilical hernia measuring up to 7.6 cm wide and 6.3 cm craniocaudal. T his appears to be a narrow neck hernia through a 7 mm abdominal wall defect. Some fat stranding is pr esent here. Mild atherosclerotic calcifications throughout the abdominal aorta and iliac arteries. There may be m oderate atherosclerotic narrowing at the origin of the celiac axis and SMA. Hypertrophic facet arthropathy lumbar spine. [facility] within the thoracic spine. Other Lines/Tubes/Devices/Hardware: None IMPRESSION: See report from [employer] regarding preprocedural planning. 1. CAD and possible pulmonary arterial hypertension. 2. A couple pulmonary nodules in the left lower lobe measuring up to 5 mm. These are nonspecific. 6-1 2 month follow-up CT chest to reassess. 3. Moderate-sized fat-containing umbilical hernia measures 7.6 x 6.3 cm. This extends through a narro w, 7 mm neck. Some fat stranding here could reflect inflammation suggest relating to incarceration. C orrelate for any focal pain here. 4. A few borderline and enlarged inguinal lymph nodes measuring up to 2.1 cm short axis. These may be reactive/post inflammatory. Clinical follow-up recommended. If any enlarging palpable lymph nodes, u ltrasound follow-up should be considered. 5. Moderate circumferential bladder wall thickening could reflect chronic bladder wall hypertrophy. C orrelate to exclude cystitis. 6. Cholelithiasis and left-sided colonic diverticulosis.
== END | disposition home or self-care (01) ==
LOC: RADCTMAIN 11:44
PROVIDERS: ATTEND Thoracic Surgery (Cardiothoracic Vascular Surgery)
DX: Z01.810 Encounter for preprocedural cardiovascular examination (principal); I25.10 Atherosclerotic heart disease of native coronary artery without angina pectoris; R91.8 Other nonspecific abnormal finding of lung field; K42.9 Umbilical hernia without obstruction or gangrene; K57.30 Diverticulosis of large intestine without perforation or abscess without bleeding; K80.20 Calculus of gallbladder without cholecystitis without obstruction; R59.0 Localized enlarged lymph nodes
CPT/HCPCS: 71275; 74174; Q9967

== ENCOUNTER → 2021-03-09 | Outpatient (CLI) | payer MEDICARE, OTHER | END | disposition home or self-care (01) | LOC: LABPAT 10:07 | PROVIDERS: ATTEND Thoracic Surgery (Cardiothoracic Vascular Surgery) | DX: Z01.812 Encounter for preprocedural laboratory examination (principal); Z20.822 Contact with and (suspected) exposure to COVID-19 | CPT/HCPCS: U0003; C9803; U0005 ==

== ENCOUNTER 2021-03-11 05:44 | Inpatient (IN) | payer MEDICARE, OTHER ==
[~2021-03-11 05:44] MED LIST changes: +ASPIRIN 325 MG TAB PO ONE; +ATORVASTATIN 10 MG TAB PO ONE; +CLEVIDIPINE BUTYRATE 25 MG in EMPTY BAG 1 BAG IV PRN; +CLOPIDOGREL 75 MG TAB PO ONE; +ELECTROLYTE-A SOLUTION 1,000 ML with POTASSIUM CHLORIDE 100 MEQ, MAGNESIUM SULFATE 16 M... IV PRN; +ELECTROLYTE-A SOLUTION 1,000 ML with POTASSIUM CHLORIDE 40 MEQ, MAGNESIUM SULFATE 16 ME... IV PRN; +INSULIN REGULAR 100 UNIT in SODIUM CHLORIDE 0.9% 100 ML IV PRN; +LACTATED RINGERS 1,000 ML IV SCH; +MD COMMUNICATION TO PHARMACY 1 EACH MISC PO ONE; +METOPROLOL TARTRATE 25 MG TAB PO ONE; +NITROGLYCERIN-D5W PMX 25 MG/250 ML BTL IV PRN; +PROTAMINE SULFATE 250 MG in EMPTY BAG 1 BAG IV PRN; -SODIUM CHLORIDE 0.9% 1,000 ML IV NR; -SODIUM CHLORIDE 0.9% 500 ML 500 ML in EMPTY BAG 1 BAG IV PRN; +TRANEXAMIC ACID 2,000 MG in SODIUM CHLORIDE 0.9% 80 ML IV PRN
[2021-03-11] MEDS ORDERED: SODIUM CHLORIDE 0.9% 1,000 ML IV ONE (06:35)
[2021-03-11 06:41] LABS: Glucose,Whole Blood 110 mg/dL (75-99)
[2021-03-11 06:50] LABS: Basophils % (A) 0 %; Eosinophils # (A) 0.2 k/uL (0-0.7); Eosinophils % (A) 3 %; HCT 37.1 % (39.0-53.0); Lymphocytes # (A) 1.2 k/uL (1.0-4.8); Lymphocytes % (A) 15 %; MCH 31.1 pg (25.0-35.0); MCHC 32.3 g/dL (31.0-37.0); MCV 96.3 fL (80.0-100.0); Monocytes # (A) 0.5 k/uL (0-1.0); Monocytes % (A) 7 %; Neutrophils # (A) 5.6 k/uL (1.3-7.7); Neutrophils % (A) 74 %; Platelet Count 203 k/uL (150-450); RBC 3.85 m/uL (4.30-5.90); RDW 12.4 % (11.5-15.5); WBC 7.6 k/uL (3.8-10.6)
[2021-03-11] MEDS ORDERED: PROTAMINE SULFATE 10 MG/ML 5 ML VIAL IV ONE (07:50)
[2021-03-11] MEDS ORDERED: fentaNYL (PF) 50 MCG/ML 2 ML AMP ONE (07:50)
[2021-03-11] MEDS ORDERED: HEPARIN SODIUM,PORCINE 10,000 UNIT/ML 1 ML VIAL ONE (07:50)
[2021-03-11] MEDS ORDERED: MIDAZOLAM 2 MG/2 ML VIAL ONE (07:50)
[2021-03-11] MEDS ORDERED: ePHEDrine SULFATE/0.9% NACL/PF 50 MG/5 ML SYRINGE IV ONE (07:50)
[2021-03-11] MEDS ORDERED: GLYCOPYRROLATE 0.2 MG/ML 2 ML VIAL ONE (07:50)
[2021-03-11] MEDS ORDERED: SUCCINYLCHOLINE CHLORIDE 100 MG/5 ML SYR IV ONE (07:50)
[2021-03-11] MEDS ORDERED: PHENYLEPHRINE-0.9% NACL SYG 1,000 MCG/10 ML SYRINGE ONE (07:50)
[2021-03-11] MEDS ORDERED: ROCURONIUM 10 MG/ML (5 ML VIAL) IV ONE (07:50)
[2021-03-11] MEDS ORDERED: PROPOFOL 10 MG/ML 20 ML VIAL IV ONE (07:50)
[2021-03-11] MEDS ORDERED: NEOSTIGMINE 1 MG/ML 10 ML VIAL ONE (07:50)
--- NOTE | 2021-03-11 08:45 | P.ANPRN ---
Procedure Note - Anesthesia - Invasive Line Left Arterial Line Time Out Performed: Yes Date of Procedure: 03/11/21 Time of Procedure: 07:20 Location of Patient: PreOp Preparation: Sterile Prep, Sterile Dressing Arterial Line Location: Radial Ultrasound Used: No Narrative: Left radial arterial line placed by PILE DRIVING TECHNICIAN under sterile conditions. Right side attempted first.
[2021-03-11] MEDS ORDERED: IOPAMIDOL-370 100ML BTL INJ ONE (09:40)
[2021-03-11] MEDS ORDERED: IOPAMIDOL-250 100ML BTL INTRAARTER ONE (09:40)
--- NOTE | 2021-03-11 09:57 | P.ANPRN ---
Procedure Note - Anesthesia - JORI Intraop Pre Bypass JORI Intraop - Anesthesia Indication: Aortic stenosis Date of Procedure: 03/11/21 Pre-operative Diagnosis: Aortic stenosis Post-operative Diagnosis: same Surgeon: Mono Elizabeth Left Ventricle: EF 50% Ejection Fraction: Normal Regional Wall Motion Abnormalities: None Left Ventricle Hypertrophy: Yes (1.4 cm) R. Ventricle Function: Normal Aortic Valve: Peak gradient 60 mmHg Mean gradient 42 mmHg Velocity 3.9 m BREE 0.9 cm2 Anatomy: Trileaflet Aortic Stenosis: Severe Aortic Regurgitation: Trace Mitral Stenosis: None Mitral Regurgitation: Trace Tricuspid Stenosis: None Tricuspid Regurgitation: Trace Pulmonic Stenosis: None Pulmonic Regurgitation: None R. Atrial Dilation: No R. Atrial PFO: No L. Atrial Dilation: Yes Aorta: moderate calcification Aortic Dissection: No Aortic Calcification: Moderate Plural Effusion: None - JORI Intraop Post Bypass JORI Intraop Post Bypass Procedure Performed: s/p TAVR Ejection Fraction: Normal Regional Wall Motion Abnormalities: None R. Ventricle Function: Normal Aortic Valve: s/p TAVR Peak gradient 12 mmHg Mean gradient 6 mmHg Velocity 1.7 m. Mild perivalvular leak largest between left and non coronary cusp. Mitral Valve: Unchanged Tricuspid: Unchanged Pulmonic: Unchanged Aortic Dissection: No
[2021-03-11] MEDS ORDERED: SODIUM CHLORIDE 0.9% 1,000 ML IV SCH (10:07)
[2021-03-11] MEDS ORDERED: IPRATROPIUM-ALBUTEROL 3 ML NEB INHALATION PRN (10:07)
[2021-03-11] MEDS ORDERED: ACETAMINOPHEN TAB 325 MG TAB PO PRN (10:07)
[2021-03-11] MEDS ORDERED: ONDANSETRON 4 MG/2 ML VIAL IVP PRN (10:07)
[2021-03-11 10:16] LABS: Glucose,Whole Blood 118 mg/dL (75-99)
--- NOTE | 2021-03-11 10:41 | P.OP ---
Date of Procedure: 03/11/21 Preoperative Diagnosis: Aortic stenosis Postoperative Diagnosis: Same Procedure(s) Performed: Transcatheter aortic valve replacement with 34 mm Corevalve pro plus via right transfemoral percutaneous approach Implants: 34 mm core valve Anesthesia: GETA Surgeon: Mono Elizabeth Proof Operator #1: Oscar Carbone Proof Operator #2: Rambo Zamora Estimated Blood Loss (ml): 20 IV fluids (ml): 200 Urine output (ml): 0 Pathology: none sent Condition: stable Disposition: ICU Indications for Procedure: 75-year-old male with symptomatic severe calcific tricuspid aortic valvular stenosis presents for elective TAVR Operative Findings: Heavily calcified valve. Good femoral access. Successful predilatation with 23 mm true balloon. Moderate aortic valvular insufficiency after implantation of the valve at levels 0 on the right and 3 on the left. Post dilatation with 26 mm Z-Med balloon led to trivial aortic insufficiency on final echocardiography. Successful hemostasis in both groins with closure devices deployed by cardiology. Description of Procedure: Patient was brought to the cardiac wharf labourer for elective procedure. Gen. anesthesia was induced and the anterior chest and bilateral groins were sterilely prepped and draped. Simultaneously Dr. Zamora obtained right femoral arterial access while I obtained right subclavian vein access. He deployed 2 Perclose devices in the right common femoral artery while I placed a screw in ventricular pacing lead into the apex of the right ventricle. Pacing threshold was below 1 V. Lead was secured to the skin with suture ligatures and connected to alligator clips. Following placement of the 2 Perclose devices in the right groin a 9-Czech sheath was placed over guidewire. Access was then obtained on the left by Dr. Zamora and a its Czech sheath was placed. This is a long sheath up into the descending thoracic aorta. Pigtail was placed from the left into the noncoronary sinus of Jade Ja and a root injection was performed to confirm placement. Patient was systemically heparinized. ACTs were maintained greater than 250 during the procedure. A 9-Czech sheath was exchanged for a 18-Czech sheath over a stiff wire. Dr. Francisco crossed the valve with a straight wire and placed a pigtail in the apex of the left ventricle. Transvalvular gradients were measured. A Lunderquist wire was now placed in the apex of the left ventricle. A 23 true balloon was advanced across the aortic valve. Aortic valvuloplasty was performed under rapid ventricular pacing. Balloon was pulled back and the Lunderquist wire was left in the apex of the ventricle. 18-Czech sheath was now exchanged for the 34 or valve delivery system. Or valve loading and been performed on the back table in the valve and checked under fluoroscopy. The valve was advanced across the aortic valve. Was deployed under rapid ventricular pacing at levels of 0 on the right and 3 on the left. Deployment went smoothly. JORI demonstrated mild to moderate aortic insufficiency. Arterial diastolic pressures were still somewhat low. A root injection was performed to confirm the presence of moderate aortic insufficiency. Was decided to post-dilate. A 26 Z-Med balloon was chosen. Cor valve exposed delivery system was exchanged for the 18-Czech sheath. The valve was recrossed with a soft pigtail and a softer stiff wire was placed in the apex of the left ventricle. Z-Med balloon was advanced across the cor valve. Forward pressure was placed on the wire in order to track along the greater curvature and maintain as horizontal a position of the balloon as possible on inflation. Balloon inflation was performed under rapid ventricular pacing. There was no change in the position of the cor valve. Balloon was deflated and pulled back the demonstrated resolution of the aortic insufficiency. There was only a trivial residual. Diastolic pressures had improved by 20 points. Was decided to accept this final position and Lunen wire were pulled back. Heparin was reversed with protamine. Femoral hemostasis was obtained by cardiology. Patient was transferred to the ICU in stable condition.
[2021-03-11 10:48] LABS: Basophils % (A) 0 %; Eosinophils # (A) 0.2 k/uL (0-0.7); Eosinophils % (A) 3 %; HCT 35.1 % (39.0-53.0); HGB 11.5 gm/dL (13.0-17.5); Lymphocytes # (A) 0.9 k/uL (1.0-4.8); Lymphocytes % (A) 15 %; MCH 31.7 pg (25.0-35.0); MCHC 32.8 g/dL (31.0-37.0); MCV 96.9 fL (80.0-100.0); Mean Platelet Volume 8.3; Monocytes # (A) 0.3 k/uL (0-1.0); Monocytes % (A) 5 %; Neutrophils # (A) 4.6 k/uL (1.3-7.7); Neutrophils % (A) 76 %; Platelet Count 147 k/uL (150-450); RBC 3.63 m/uL (4.30-5.90); RDW 12.4 % (11.5-15.5); WBC 6.1 k/uL (3.8-10.6)
[2021-03-11 10:59] LABS: Partial Thromboplastin Time 25.5 sec (22.0-30.0); Prothrombin Time 10.9 sec (9.0-12.0)
[2021-03-11] MEDS ORDERED: traMADol 50 MG TAB PO PRN (12:08)
[2021-03-11 12:15] LABS: Ionized Calcium 5.2 mg/dL (4.5-5.3)
[2021-03-11 12:24] LABS: Albumin 3.6 g/dL (3.5-5.0); Calcium 9.4 mg/dL (8.4-10.2); Magnesium 1.7 mg/dL (1.6-2.3); Potassium 4.2 mmol/L (3.5-5.1); Total Bilirubin 0.4 mg/dL (0.2-1.3); Total Protein 6.3 g/dL (6.3-8.2)
[2021-03-11] MEDS: NON FORMULARY DRUG (Nateglinide 120 MG Tab) PO SCH ×2 (12:41→16:31)
[2021-03-11] MEDS: INSULIN ASPART (NovoLOG) 100 UNIT/ML VIAL SQ SCH ×3 (12:41→21:21)
--- NOTE | 2021-03-11 14:28 | XR ---
EXAMINATION TYPE: XR chest 1V portable DATE OF EXAM: 03/11/2021 COMPARISON: NONE HISTORY: Postop cardiac surgery TECHNIQUE: Single frontal view of the chest is obtained. FINDINGS: Transvenous pacemaker is present via a right subclavian approach with lead in the right ve ntricle, there are overlying leads. Heart is enlarged. The right hemidiaphragm is elevated. There is no evident pneumothorax or pleural effusion. Pulmonary vascularity and yuri within normal limits. No evident airspace disease. Aorta is dense. Technique is somewhat apical lordotic. IMPRESSION: The megaly, postprocedural changes. Elevated right hemidiaphragm.
--- NOTE | 2021-03-11 14:47 | P.CNPUL ---
History of Present Illness Consult date: 03/11/21 Requesting physician: Oscar Carbone Reason for consult: other Chief complaint: S/P TAVR History of present illness: Pulmonary consult dated 03/11/2021. 75-year-old male with a history of hypertension, hyperlipidemia, type 2 diabetes, coronary artery disease, status post circumflex stent, sleep apnea syndrome, and noncompliant with CPAP, diastolic CHF, obesity, CKD, venous insufficiency, and severe aortic stenosis. The patient was evaluated by cardiology and specifically Dr. Zamora for severe aortic stenosis, and a transcatheter aortic valve replacement was recommended. The patient underwent the procedure today with Dr. Elizabeth. The patient's currently resting comfortably in the ICU, room 264. The patient is on 3 L nasal cannula, and getting saline at 50 mL an hour. He has no major complaints other than the fact that he "wants to get out of the hospital". His most recent echocardiogram showed a foul surface area of only 0.6 cm, and ejection fraction of 50-55%, and a gradient across the aortic valve of 32. Lab data today includes a white count of 6.1, hemoglobin 11.5, hematocrit 35.1, and platelet count 147,000. PT/INR PTT were normal. Sodium potassium chloride CO2 all normal. Anion gap normal. BUN 32 and creatinine 1.52. Chest x-ray shows elevated right diaphragm, and borderline cardiomegaly. Review of Systems REVIEW OF SYSTEMS: CONSTITUTIONAL: [Negative.] NEUROLOGIC: [ Negative.] HEENT: [ Negative.] CARDIAC: Lower extremity edema. PULMONARY: Recent dyspnea on exertion. GI: [Negative.] : [Negative.] RHEUMATOLOGIC: [ Negative.] IMMUNOLOGIC: [ Negative.] ENDOCRINE: [Negative. ] DERMATOLOGIC: [Negative.] Past Medical History Past Medical History: Diabetes Mellitus, Hearing Disorder / Deafness, Hyperlipidemia, Hypertension, Osteoarthritis (OA), Sleep Apnea/CPAP/BIPAP Additional Past Medical History / Comment(s): GLAUCOMA darya eyes, does not use C- PAP, SOB. History of Any Multi-Drug Resistant Organisms: None Reported Past Surgical History: Heart Catheterization, Hernia Repair, Joint Replacement Additional Past Surgical History / Comment(s): JORI,CATARACT SURGERY BILATERALLY, TOTAL RIGHT KNEE REPLACEMENT, UMBILICAL HERNIA REPAIR. Past Anesthesia/Blood Transfusion Reactions: Postoperative Nausea & Vomiting (PONV) Smoking Status: Never smoker - Past Family History Mother Family Medical History: Deep Vein Thrombosis (DVT) Brother(s) Family Medical History: Cancer Father Family Medical History: Myocardial Infarction (RI) Additional Family Medical History / Comment(s): with RI at age 75 or 76 Medications and Allergies Home Medications Medication Instructions Recorded Confirmed Type Ascorbic Acid [Vitamin C] 1,000 mg PO TID 07/03/18 03/11/21 History Aspirin [Adult Low Dose Aspirin EC] 81 mg PO DAILY 07/03/18 03/11/21 History Cinnamon Bark [Cinnamon] 1,000 mg PO BID 07/03/18 03/11/21 History Cranberry Fruit Extract [Cranberry] 500 mg PO DAILY 07/03/18 03/11/21 History Cyanocobalamin (Vitamin B-12) 1,000 mcg PO DAILY 07/03/18 03/11/21 History [Vitamin B-12] Ferrous Sulfate [Feosol] 325 mg PO DAILY 07/03/18 03/11/21 History Garlique 1 tab PO DAILY 07/03/18 03/11/21 History Lutein 6 mg PO DAILY 07/03/18 03/11/21 History Multivitamins, Thera [Multivitamin 1 tab PO DAILY 07/03/18 03/11/21 History (formulary)] Nateglinide [Starlix] 120 mg PO AC-TID 07/03/18 03/11/21 History [place]-3 Fatty Acids/Fish Oil [Fish 1 each PO QID 07/03/18 03/11/21 History Oil 1,000 mg Softgel] Pioglitazone [Actos] 45 mg PO DAILY 07/03/18 03/11/21 History Ubidecarenone [Co Q-10] 100 mg PO DAILY 07/03/18 03/11/21 History glipiZIDE [Glucotrol] 10 mg PO AC-BID 07/03/18 03/11/21 History metFORMIN HCL 1,000 mg PO BID 07/03/18 03/11/21 History sitaGLIPtin [Januvia] 100 mg PO DAILY 07/03/18 03/11/21 History Furosemide [Lasix] 40 mg PO DAILY 12/18/20 03/11/21 History Potassium Chloride ER [K-Dur 10] 10 meq PO DAILY 12/18/20 03/11/21 History Loratadine [Claritin] 10 mg PO DAILY 12/25/20 03/11/21 History Pravastatin Sodium [Pravachol] 10 mg PO HS 12/25/20 03/11/21 History Clopidogrel Bisulfate [Plavix] 75 mg PO DAILY #90 tab 12/30/20 03/11/21 Rx Bimatoprost [Lumigan .01% Ophth 1 drop BOTH EYES HS 03/09/21 03/11/21 History Soln] Cholecalciferol (Vitamin D3) 125 mcg PO DAILY 03/09/21 03/11/21 History [Vitamin D3 (125 MCG = 5,000 IU)] Lisinopril-Hctz 20-25 mg 1 tab PO DAILY 03/09/21 03/11/21 History [Zestoretic 20-25] timoloL maleate [timoloL maleate 1 applic BOTH EYES BID 03/09/21 03/11/21 History 0.5% Gel] Allergies Allergy/AdvReac Type Severity Reaction Status Date / Time chlorhexidine Allergy Rash/Hives/ Verified 03/11/21 06:14 itching Penicillins Allergy Unknown Verified 03/11/21 06:14 Childhood sulfamethoxazole Allergy Unknown Verified 03/11/21 06:14 [From Bactrim] trimethoprim [From Bactrim] Allergy Unknown Verified 03/11/21 06:14 Physical Exam Osteopathic Statement: *. No significant issues noted on an osteopathic stru ctural exam other than those noted in the History and Physical/Consult. Vitals: Vital Signs Temp Pulse Resp BP BP BP BP 03/11/21 06:30 98 F 61 18 137/61 138/64 122/61 134/78 Pulse Ox 03/11/21 06:30 98 Intake and Output 03/10/21 03/11/21 03/11/21 22:59 06:59 14:59 Intake Total 450 Balance 450 Intake: IV 450 Other: Weight 133.8 kg No acute distress, oriented 3. Room air saturation is 98%. He is currently on 3 L nasal cannula. HEENT examination is grossly unremarkable. Neck supple. Full range of motion. No adenopathy thyromegaly or neck vein distention. Cardiovascular examination reveals regular rhythm rate. S1-S2 normal. No S3 or S4. No discernible murmur noted. Heart rate 61 bpm. Lungs reveal clear breath sounds. Breath sounds are equal bilaterally. No adventitious lung sounds including wheezes rhonchi or crackles. Abdomen soft bowel sounds are heard. No masses or tenderness. Extremities are intact. No cyanosis clubbing or edema. Skin is without rash or lesion. Neurologic examination is brief but nonfocal. Results - Laboratory Findings CBC and BMP: 03/11/21 10:30 03/11/21 10:30 PT/INR, D-dimer PT 10.9 sec (9.0-12.0) 03/11/21 10:30 INR 1.0 (<1.2) 03/11/21 10:30 Abnormal lab findings: Abnormal Labs 03/09/21 03/11/21 03/11/21 10:14 06:28 06:39 RBC 3.85 L Hgb 12.0 L Hct 37.1 L Plt Count Lymphocytes # BUN Creatinine Glucose POC Glucose (mg/dL) 110 H Crossmatch See Detail 03/11/21 03/11/21 03/11/21 10:14 10:30 10:30 RBC 3.63 L Hgb 11.5 L Hct 35.1 L Plt Count 147 L Lymphocytes # 0.9 L BUN 32 H Creatinine 1.52 H Glucose 132 H POC Glucose (mg/dL) 118 H Crossmatch - Diagnostic Findings Chest x-ray: image reviewed Assessment and Plan Assessment: Postop day #0, status post transcatheter aortic valve replacement (TAVR), for severe aortic stenosis. History of type 2 diabetes mellitus. History of CAD, with previous PCI of circumflex coronary artery. Chronic diastolic CHF. Hypertension. Hyperlipidemia. Sleep apnea, noncompliant with CPAP. Mild chronic kidney disease. Obesity. Venous insufficiency. Plan: Plan dated 03/11/2021. The patient is seen in the intensive care unit. Patient is resting comfortably. He is in room 254. The patient's labs, x-rays, echocardiogram, and previous history of all reviewed. In addition, cardiology consultation by Dr. Zamora is reviewed. This was done on March 02 of this year. We will continue to follow make recommendations where appropriate. Time with Patient: Greater than 30
[2021-03-11 16:34] LABS: Glucose,Whole Blood 154 mg/dL (75-99)
[2021-03-11] MEDS: glipiZIDE 10 MG TAB PO SCH (16:35)
[2021-03-11] MEDS: ASCORBIC ACID 500 MG TAB PO SCH ×2 (16:35→21:07)
--- NOTE | 2021-03-11 18:03 | P.PCN ---
Date of Procedure: 03/11/21 Operative Findings: Transcatheter Aoritc Valve Replacement Operative report PROCEDURE PERFORMED: 1. Percutaneous Aortic Valve Implantation using a 34 mm Core-Valve Evolut-Pro 2. Transesophageal echocardiography (performed by anesthesia) 3. Ultrasound guided access and repair of right femoral artery access site by Perclose closure device. 4. Ultrasound guided access and repair of left femoral artery access site by angiosea closure device. 4. Placement of temporary pacemaker wire. 5. Aortic root angiography 6. Pre and post TAVR balloon aortic valvuloplasty INDICATIONS: This is a pleasant 75 year-old with a history of severe symptomatic aortic valve stenosis. The patient was seen and evaluated the valve the clinic in the presents of deck engine operator as well as cardiothoracic surgeon and the decision was made toward transcatheter aortic valve replacement giving the patient high surgical risk for open aortic valve replacement. The decision was discussed with the family and they were in full understanding and agreement PERFORMING PHYSICIANS: 1. Oscar Carbone MD Interventional Cardiology. 2. Rambo Zamora DO Interventional Cardiology 3. Mono Elizabeth MD, Cardiothoracic Surgeon. 4. Kenroy Barillas MD Proctoring Interventional cardiology SEDATION: General anesthesia provided by anesthesia, see separate note. APPROACH: B/L femoral artery via percutaneous approach. PROCEDURE DESCRIPTION: The patient was discussed at valve clinic with multidisciplinary approach with cardiothoracic surgeon as well as facing grinder and thought better treated with TAVR. Risks, benefits, and alternatives of the procedure had been explained to the patient who understood the risks and agreed to proceed. After consents were obtained, patient was brought to the transcatheter aortic valve implantation room in the cardiac laborer [place] and general anesthesia was provided by the anesthesiologist (see separate report). Once full body sterile prep was performed, the right subclavian vein was cannulated and subsequently a transvenous pacemaker was advanced under fluoroscopy guidance to the apex of the right ventricle. Next the left common femoral artery was cannulated using micropuncture technique under ultrasound guidance, the micropuncture wire passed easily then we place 6-Cuban 55 cm. After that a 5-Cuban pigtail catheter was advanced under fluoroscopy guidance over O35 wire to the non-coronary cusp. The right femoral artery was accessed using modified Seldinger technique and under direct ultrasound guidance. We did b/l femoral angiogram to assess the entry location. Next preclose technique was performed using 2 Percloses. Next a 0.035 Lunderquist wire was placed in the Aorta via a pigtail catheter. The arteriotomy was serially dilated and a 18 Fr Oneco sheath was placed. Next a 6F- AL1 catheter was advanced over a wire to the aortic root. A straight wire was advanced through the catheter and used to cross the severely stenotic valve. The AL1 was then exchanged for a 6Fr pigtail catheter and pressure measurements were obtained. The 0.035 Lunderquist wire was then positioned in the apex. Next preTAVR balloon aortic valvuloplasty was performed. Next a 34 mm Corevalve Evolut-Pro was advanced after the sheath was removed. The valve was then positioned across the aortic valve and confirmed with aortic root angiography. The valve was initially partially deployed and then deployed in proper position using slow deployment and with rapid pacing in conjuncture with aortic root angiography and JORI. The delivery system was withdrawn back into the arch. There was significant paravavlular leak noted and therefore the decision was made to perform post BAV. Post balloon aortic vavluloplasty was performed with a 28mm under rapid pacing. An aortic root injection in conjunction with JORI demonstrated a satisfactory result. There was trace para valvular leak. There was no evidence of any other significant abnormalities. The preclose Perclose was then deployed in the right femoral artery and angioseal was placed in the left LOKIE DRIVER. COMPLICATIONS: None RECOMMENDATIONS: The patient will be monitored in the ICU for hemodynamic and electrical stability.
[2021-03-11] MEDS ORDERED: LATANOPROST 0.005% OPHTH DROPS 2.5 ML BTL BOTH EYES SCH (21:00)
[2021-03-11] MEDS: TIMOLOL 0.5% OPHTH DROPS 5 ML BTL BOTH EYES SCH (21:08)
[2021-03-11 21:09] LABS: Glucose,Whole Blood 152 mg/dL (75-99)
[2021-03-12] MEDS: HEPARIN SODIUM,PORCINE/PF 5,000 UNIT/0.5 ML SYRINGE SQ SCH ×2 (00:06→08:27)
[2021-03-12 04:10] LABS: Basophils % (A) 0 %; Eosinophils # (A) 0.2 k/uL (0-0.7); Eosinophils % (A) 2 %; HCT 39.2 % (39.0-53.0); HGB 12.4 gm/dL (13.0-17.5); Lymphocytes # (A) 0.6 k/uL (1.0-4.8); Lymphocytes % (A) 6 %; MCHC 31.6 g/dL (31.0-37.0); Mean Platelet Volume 7.9; Monocytes # (A) 0.7 k/uL (0-1.0); Monocytes % (A) 7 %; Neutrophils % (A) 83 %; Platelet Count 165 k/uL (150-450); RDW 12.3 % (11.5-15.5); WBC 9.6 k/uL (3.8-10.6)
[2021-03-12 04:25] LABS: Ionized Calcium 5.1 mg/dL (4.5-5.3)
[2021-03-12 04:38] LABS: Calcium 9.6 mg/dL (8.4-10.2); Magnesium 1.8 mg/dL (1.6-2.3); Potassium 4.2 mmol/L (3.5-5.1); Total Bilirubin 0.6 mg/dL (0.2-1.3); Total Protein 6.8 g/dL (6.3-8.2)
[2021-03-12 07:05] LABS: Glucose,Whole Blood 144 mg/dL (75-99)
[2021-03-12] MEDS: INSULIN ASPART (NovoLOG) 100 UNIT/ML VIAL SQ SCH ×2 (07:12→13:16)
[2021-03-12] MEDS: NON FORMULARY DRUG (Nateglinide 120 MG Tab) PO SCH ×2 (07:17→11:53)
[2021-03-12] MEDS: glipiZIDE 10 MG TAB PO SCH (07:17)
[2021-03-12] MEDS ORDERED: PANTOPRAZOLE 40 MG TABLET PO SCH (07:30)
--- NOTE | 2021-03-12 07:48 | XR ---
EXAMINATION TYPE: XR chest 1V portable DATE OF EXAM: 03/12/2021 COMPARISON: 03/11/2021 HISTORY: Postop cardiac surgery TECHNIQUE: Single frontal view of the chest is obtained. FINDINGS: Heart is enlarged. No overt failure. Arthropathy shoulders. Cardiac leads noted. Subsegmen antony changes left lung base. No sizable pleural effusion. IMPRESSION: Cardiomegaly with left basilar atelectasis versus early infiltrate.
[2021-03-12] MEDS: ASCORBIC ACID 500 MG TAB PO SCH (08:28)
[2021-03-12] MEDS: TIMOLOL 0.5% OPHTH DROPS 5 ML BTL BOTH EYES SCH (08:29)
[2021-03-12] MEDS ORDERED: CLOPIDOGREL 75 MG TAB PO SCH (09:00)
[2021-03-12] MEDS ORDERED: FERROUS SULFATE 325 MG TAB PO SCH (09:00)
[2021-03-12] MEDS ORDERED: METOPROLOL TARTRATE 25 MG TAB PO SCH (09:00)
[2021-03-12] MEDS ORDERED: LISINOPRIL-HCTZ 20-25 MG 1 EACH TAB PO SCH (09:00)
[2021-03-12] MEDS ORDERED: MULTIVITAMINS, THERA 1 EACH TAB PO SCH (09:00)
[2021-03-12] MEDS ORDERED: MAGNESIUM HYDROXIDE 2,400 MG/10 ML CUP PO PRN (09:00)
[2021-03-12] MEDS ORDERED: POTASSIUM CHLORIDE ER 10 MEQ TAB.ER.PRT PO SCH (09:00)
[2021-03-12] MEDS ORDERED: FUROSEMIDE 40 MG TAB PO SCH (09:00)
[2021-03-12] MEDS ORDERED: ASPIRIN 81 MG PO SCH (09:00)
[2021-03-12] MEDS ORDERED: CYANOCOBALAMIN 500 MCG TAB PO SCH (09:00)
[2021-03-12] MEDS ORDERED: LINAGLIPTIN 5 MG TABLET PO SCH (09:00)
[2021-03-12] MEDS ORDERED: METOPROLOL TARTRATE 12.5 MG TAB PO SCH (09:00)
[2021-03-12] MEDS ORDERED: CHOLECALCIFEROL 25 MCG (1000 IU) TABLET PO SCH (09:00)
[2021-03-12] MEDS ORDERED: LORATADINE 10 MG TAB PO SCH (09:00)
--- NOTE | 2021-03-12 10:49 | P.PN ---
Subjective Progress Note Date: 03/12/21 Principal diagnosis: Aortic stenosis. Pulmonary consult dated 03/11/2021. 75-year-old male with a history of hypertension, hyperlipidemia, type 2 diabetes, coronary artery disease, status post circumflex stent, sleep apnea syndrome, and noncompliant with CPAP, diastolic CHF, obesity, CKD, venous insufficiency, and severe aortic stenosis. The patient was evaluated by cardiology and specifically Dr. Zamora for severe aortic stenosis, and a transcatheter aortic valve replacement was recommended. The patient underwent the procedure today with Dr. Elizabeth. The patient's currently resting comfortably in the ICU, room 264. The patient is on 3 L nasal cannula, and getting saline at 50 mL an hour. He has no major complaints other than the fact that he "wants to get out of the hospital". His most recent echocardiogram showed a foul surface area of only 0.6 cm, and ejection fraction of 50-55%, and a gradient across the aortic valve of 32. Lab data today includes a white count of 6.1, hemoglobin 11.5, hematocrit 35.1, and platelet count 147,000. PT/INR PTT were normal. Sodium potassium chloride CO2 all normal. Anion gap normal. BUN 32 and creatinine 1.52. Chest x-ray shows elevated right diaphragm, and borderline cardiomegaly. Progress note dated 03/12/2021. 75-year-old male, postop day #1, that is post transcatheter aortic valve replacement for severe aortic stenosis. The patient's currently on room air. He is not receiving any IV fluids. He's feeling just fine. He has a history of coronary disease, type 2 diabetes, hypertension, hyperlipidemia, sleep apnea syndrome, diastolic CHF, obesity, mild chronic kidney disease, obesity, venous insufficiency, and of course severe aortic stenosis. The patient appeared to tolerate the procedure very well, and might be considered for possible discharge home today. White count 9.6, hemoglobin 12.4, hematocrit 39.2, platelet count normal. Sodium, potassium, chloride, CO2 all normal. Anion gap normal. BUN 31, creatinine 1.28. Chest x-rays consistent with mild left basilar atelectasis and cardiomegaly. Objective - Vital Signs Vital signs: Vital Signs Temp 96.3 F L 03/12/21 08:00 Pulse 61 03/12/21 10:00 Resp 16 03/12/21 10:00 BP 120/54 03/12/21 08:00 Pulse Ox 97 03/12/21 08:00 Intake & Output 03/11/21 03/12/21 03/12/21 18:59 06:59 18:59 Intake Total 200 840 70 Output Total 725 700 Balance -525 140 70 Intake: IV 150 240 70 0.9 NS KVO 140 20 Sodium Chloride 0.9% 1, 150 000 ml @ 50 mls/hr IV . Q20H [facility] Rx#:[id number] ceFAZolin 2 gm In Sodium 100 50 Chloride 0.9% 50 ml @ 100 mls/hr IVPB Q8HR [facility] Rx# :[id number] Intake, IV Titration 50 Amount ceFAZolin 2 gm In Sodium 50 Chloride 0.9% 50 ml @ 100 mls/hr IVPB Q8HR [facility] Rx# :[id number] Oral 600 Output: Urine 725 700 Other: Voiding Method Urinal # Voids 1 1 ABP, PAP, CO, CI - Last Documented Arterial Blood Pressure 148/45 - Exam No acute distress, oriented 3. Room air saturation is 98%. He is currently not receiving any supplemental oxygen. HEENT examination is grossly unremarkable. Neck supple. Full range of motion. No adenopathy thyromegaly or neck vein distention. Cardiovascular examination reveals regular rhythm rate. S1-S2 normal. No S3 or S4. No discernible murmur noted. Heart rate 61 bpm. Lungs reveal clear breath sounds. Breath sounds are equal bilaterally. No adventitious lung sounds including wheezes rhonchi or crackles. Abdomen soft bowel sounds are heard. No masses or tenderness. Extremities are intact. No cyanosis clubbing or edema. Skin is without rash or lesion. Neurologic examination is brief but nonfocal. - Labs CBC & Chem 7: 03/12/21 03:35 03/12/21 03:35 Labs: Abnormal Lab Results - Last 24 Hours (Table) 03/09/21 03/11/21 03/11/21 Range/Units 10:14 10:30 10:30 RBC 3.63 L (4.30-5.90) m/uL Hgb 11.5 L (13.0-17.5) gm/dL Hct 35.1 L (39.0-53.0) % Plt Count 147 L (150-450) k/uL Neutrophils # (1.3-7.7) k/uL Lymphocytes # 0.9 L (1.0-4.8) k/uL BUN 32 H (9-20) mg/dL Creatinine 1.52 H (0.66-1.25) mg/dL Glucose 132 H (74-99) mg/dL POC Glucose (mg/dL) (75-99) mg/dL Crossmatch See Detail 03/11/21 03/11/21 03/12/21 Range/Units 16:33 21:06 03:35 RBC 4.00 L (4.30-5.90) m/uL Hgb 12.4 L (13.0-17.5) gm/dL Hct (39.0-53.0) % Plt Count (150-450) k/uL Neutrophils # 8.0 H (1.3-7.7) k/uL Lymphocytes # 0.6 L (1.0-4.8) k/uL BUN (9-20) mg/dL Creatinine (0.66-1.25) mg/dL Glucose (74-99) mg/dL POC Glucose (mg/dL) 154 H 152 H (75-99) mg/dL Crossmatch 03/12/21 03/12/21 Range/Units 03:35 07:03 RBC (4.30-5.90) m/uL Hgb (13.0-17.5) gm/dL Hct (39.0-53.0) % Plt Count (150-450) k/uL Neutrophils # (1.3-7.7) k/uL Lymphocytes # (1.0-4.8) k/uL BUN 31 H (9-20) mg/dL Creatinine 1.28 H (0.66-1.25) mg/dL Glucose 141 H (74-99) mg/dL POC Glucose (mg/dL) 144 H (75-99) mg/dL Crossmatch Assessment and Plan Assessment: Postop day #1, status post transcatheter aortic valve replacement (TAVR), for severe aortic stenosis. History of type 2 diabetes mellitus. History of CAD, with previous PCI of circumflex coronary artery. Chronic diastolic CHF. Hypertension. Hyperlipidemia. Sleep apnea, noncompliant with CPAP. Mild chronic kidney disease. Obesity. Venous insufficiency. Plan: Plan dated 03/11/2021. The patient is seen in the intensive care unit. Patient is resting comfortably. He is in room 254. The patient's labs, x-rays, echocardiogram, and previous history of all reviewed. In addition, cardiology consultation by Dr. Zamora is reviewed. This was done on March 02 of this year. We will continue to follow make recommendations where appropriate. Plan dated 03/12/2021. The patient seems be doing relatively well. The patient may be considered for possible discharge home today. No additional recommendations are made. He is certainly stable from the pulmonary standpoint. Saturations are excellent on no supplemental oxygen. Time with Patient: Less than 30
[2021-03-12 11:26] VITALS: BMI 38.9
--- NOTE | 2021-03-12 12:00 | ECHOF ---
Referral Reason:post TAVR MEASUREMENTS -------- HEIGHT: 185.4 cm WEIGHT: 133.4 kg BP: 120/52 RVIDd: 2.9 cm (< 3.3) IVSd: 1.5 cm (0.6 - 1.1) LVIDd: 5.2 cm (3.9 - 5.3) LVPWd: 1.6 cm (0.6 - 1.1) IVSs: 2.5 cm LVIDs: 3.2 cm LVPWs: 1.9 cm LA Diam: 4.4 cm (2.7 - 3.8) LAESV Index (A-L): 26.41 ml/m Ao Diam: 2.5 cm (2.0 - 3.7) MV EXCURSION: 13.601 mm (> 18.000) MV EF SLOPE: 35 mm/s (70 - 150) EPSS: 1.1 cm MV E Jesus: 0.85 m/s MV DecT: 346 ms MV A Jesus: 1.08 m/s MV E/A Ratio: 0.79 AV maxP.84 mmHg AV meanP.64 mmHg FINDINGS -------- Sinus rhythm. This was a technically adequate study. The left ventricular size is normal. There is moderate concentric left ventricular hypertrophy. O verall left ventricular systolic function is normal with, an EF between 55 - 60 %. The right ventricle is normal in size. Normal LA size by volume 22+/-6 ml/m2. The right atrial size is normal. Interatrial and interventricular septum intact. Trace amount of aortic regurgitation. Peak/mean gradient across the Aortic Valve is 16.84mmHg / 9. 64mmHg. Normally functioning bioprosthetic valve. TAVR procedure done Mild mitral annular calcification present. Mild mitral regurgitation is present. The tricuspid valve appears structurally normal. Trace tricuspid regurgitation present. Unable to estimate RVSP due to inadequate TR jet spectral doppler profile. The pulmonic valve was not well visualized. The aortic root size is normal. Normal inferior vena cava with normal inspiratory collapse consistent with estimated right atrial pre ssure of 5 mmHg. There is no pericardial effusion. CONCLUSIONS -------- 1. There is moderate concentric left ventricular hypertrophy. 2. Overall left ventricular systolic function is normal with, an EF between 55 - 60 %. 3. Normal LA size by volume 22+/-6 ml/m2. 4. Trace amount of aortic regurgitation. 5. Peak/mean gradient across the Aortic Valve is 16.84mmHg / 9.64mmHg. 6. Normally functioning bioprosthetic valve. 7. TAVR procedure done 8. Mild mitral annular calcification present. 9. Mild mitral regurgitation is present. 10. There is no pericardial effusion. CARPET MECHANIC: Kristen Alva RDCS
[2021-03-12 12:06] LABS: Glucose,Whole Blood 131 mg/dL (75-99)
--- NOTE | 2021-03-12 12:34 | P.DS ---
Providers Date of admission: 03/11/21 05:44 Expected date of discharge: 03/12/21 Attending physician: Oscar Carbone Consults: 03/11/21 10:07 Consult Physician Routine Consulting Provider: Jaspreet Suazo Consult Reason/Comments: [place] Consult: post cardiac surgery Do you want consulting provider notified?: Yes Consult Physician Routine Consulting Provider: Mono Elizabeth Consult Reason/Comments: post tavr Do you want consulting provider notified?: Already Contacted Primary care physician: Martínez Vega [facility] Course: MEDICAL HISTORY: 1. Severe symptomatic aortic valve stenosis, NYHA class II-III symptoms 2. Coronary artery disease, status post PCI of the circumflex coronary artery on 12/29/2020 3. Chronic diastolic heart failure 4. Lower extremity edema, likely a component of venous insufficiency plus diastolic heart failure 5. Hypertension 6. Dyslipidemia 7. Obstructive sleep apnea, noncompliant with CPAP PROCEDURE: 1. Percutaneous aortic valve implantation using a 34 mm Core Valve Evolute-Pro Plus under JORI and fluoroscopy guidance. 2. Transesophageal echocardiography performed by anesthesia. 3. Ultrasound-guided access and repair of right femoral artery access site by Perclose closure device. 4. Ultrasound-guided access and repair of left femoral artery access site by Angioseal closure device. 5. Placement of temporary pacemaker wire. 6. Aortic root angiography. 7. Pre-balloon aortic valvuloplasty with a 23 mm True balloon and post-balloon aortic valvuloplasty with a 26 mm Z med balloon. HISTORY OF PRESENT ILLNESS: This is a 75-year-old gentleman who follows on an outpatient basis with Dr. Martínez Vega for primary care and Dr. Carl for his cardiology care. He has a known history of severe aortic stenosis and has been symptomatic with increased exertional dyspnea as well as some worsening edema to his bilateral lower extremities. He had been referred to structural heart clinic for evaluation for transcatheter aortic valve replacement after heart catheterization and transesophageal echocardiogram were completed. Echocardiography demonstrated a low normal left ventricular systolic function with an EF 50-55%, calcified tricuspid aortic valve, aortic valve area 0.6 cm with a peak/mean gradient 58.60/32.7 mmHg. Heart catheterization showed a 70% circumflex stenosis and therefore underwent a successful PCI on 12/29/2020. After workup was completed an STS risk score was calculated along with incremental risk and the patient was felt to be at higher risk for surgical aortic valve replacement, therefore transcatheter aortic valve replacement was recommended. The usual course of TAVR was discussed in detail with the patient, risks and benefits were reviewed, and knowing and understanding these risks, the patient consented to proceed with the TAVR procedure. HOSPITAL COURSE: The patient was brought to the hospital on 03/11/2021, taken to the extended stay area, prepared in the usual fashion, and subsequently taken to the cardiac catheterization laboratory where Dr. Carbone, Dr. Zamora and Dr. Elizabeth completed a TAVR procedure under general anesthesia with fluoroscopy and JORI. The valve was deployed under rapid ventricular pacing and proceeded without event. At the end of the procedure there was a peak gradient of 12 mm/Hg and a mean gradient of 6 mm/Hg, hemodynamics were felt to be excellent, and there is no evidence of significant perivalvular leak. Upon completion of the procedure the patient was extubated and was transferred to the cardiovascular intensive care unit where he was recovered and monitored hemodynamically. His oxygen was titrated down, he was tolerating oral diet, his pain was controlled, and his follow-up TTE demonstrated an overall left v entricular systolic function to be normal with an ejection fraction between 55 and 60%, trace amount of aortic valve regurgitation, a peak/mean gradient across aortic valve of 16.84 mmHg 4/9.64 mmHg, normally functioning bioprosthetic valve, mild mitral annular calcification, mild mitral valve regurgitation and no pericardial effusion. He was ready to be discharged to home on postoperative day #1. He has received written and verbal instruction regarding his medications, activity restrictions, signs and symptoms requiring physician notification, and follow-up appointments. Plan - Discharge Summary Discharge Rx Participant: No New Discharge Prescriptions: New Metoprolol Tartrate [Lopressor] 12.5 mg PO BID #60 tab Acetaminophen Tab [Tylenol] 650 mg PO Q4HR PRN tab PRN Reason: Fever And/ Or Mild Pain (1-3) Continue Multivitamins, Thera [Multivitamin (formulary)] 1 tab PO DAILY Ascorbic Acid [Vitamin C] 1,000 mg PO TID Ferrous Sulfate [Iron (65 MG Elemental)] 325 mg PO DAILY sitaGLIPtin [Januvia] 100 mg PO DAILY Pioglitazone [Actos] 45 mg PO DAILY Nateglinide [Starlix] 120 mg PO AC-TID glipiZIDE [Glucotrol] 10 mg PO AC-BID metFORMIN HCL 1,000 mg PO BID Ubidecarenone [Co Q-10] 100 mg PO DAILY Cantwell-3 Fatty Acids/Fish Oil [Fish Oil 1,000 mg Softgel] 1 each PO QID Lutein 6 mg PO DAILY Garlique 1 tab PO DAILY Cyanocobalamin (Vitamin B-12) [Vitamin B-12] 1,000 mcg PO DAILY Cranberry Fruit Extract [Cranberry] 500 mg PO DAILY Cinnamon Bark [Cinnamon] 1,000 mg PO BID Aspirin [Adult Low Dose Aspirin EC] 81 mg PO DAILY Furosemide [Lasix] 40 mg PO DAILY Loratadine [Claritin] 10 mg PO DAILY Lisinopril-Hctz 20-25 mg [Zestoretic 20-25] 1 tab PO DAILY Bimatoprost [Lumigan .01% Ophth Soln] 1 drop BOTH EYES HS Potassium Chloride ER [K-Dur 10] 10 meq PO DAILY Pravastatin Sodium [Pravachol] 10 mg PO HS Clopidogrel Bisulfate [Plavix] 75 mg PO DAILY #90 tab Cholecalciferol (Vitamin D3) [Vitamin D3 (125 MCG = 5,000 IU)] 125 mcg PO DAILY timoloL maleate [timoloL maleate 0.5% Gel] 1 applic BOTH EYES BID Discharge Medication List Ascorbic Acid [Vitamin C] 1,000 mg PO TID 07/03/18 [History] Aspirin [Adult Low Dose Aspirin EC] 81 mg PO DAILY 07/03/18 [History] Cinnamon Bark [Cinnamon] 1,000 mg PO BID 07/03/18 [History] Cranberry Fruit Extract [Cranberry] 500 mg PO DAILY 07/03/18 [History] Cyanocobalamin (Vitamin B-12) [Vitamin B-12] 1,000 mcg PO DAILY 07/03/18 [Histor y] Ferrous Sulfate [Iron (65 MG Elemental)] 325 mg PO DAILY 07/03/18 [History] Garlique 1 tab PO DAILY 07/03/18 [History] Lutein 6 mg PO DAILY 07/03/18 [History] Multivitamins, Thera [Multivitamin (formulary)] 1 tab PO DAILY 07/03/18 [History] Nateglinide [Starlix] 120 mg PO AC-TID 07/03/18 [History] Cantwell-3 Fatty Acids/Fish Oil [Fish Oil 1,000 mg Softgel] 1 each PO QID 07/03/18 [History] Pioglitazone [Actos] 45 mg PO DAILY 07/03/18 [History] Ubidecarenone [Co Q-10] 100 mg PO DAILY 07/03/18 [History] glipiZIDE [Glucotrol] 10 mg PO AC-BID 07/03/18 [History] metFORMIN HCL 1,000 mg PO BID 07/03/18 [History] sitaGLIPtin [Januvia] 100 mg PO DAILY 07/03/18 [History] Furosemide [Lasix] 40 mg PO DAILY 12/18/20 [History] Potassium Chloride ER [K-Dur 10] 10 meq PO DAILY 12/18/20 [History] Loratadine [Claritin] 10 mg PO DAILY 12/25/20 [History] Pravastatin Sodium [Pravachol] 10 mg PO HS 12/25/20 [History] Clopidogrel Bisulfate [Plavix] 75 mg PO DAILY #90 tab 12/30/20 [Rx] Bimatoprost [Lumigan .01% Ophth Soln] 1 drop BOTH EYES HS 03/09/21 [History] Cholecalciferol (Vitamin D3) [Vitamin D3 (125 MCG = 5,000 IU)] 125 mcg PO DAILY 03/09/21 [History] Lisinopril-Hctz 20-25 mg [Zestoretic 20-25] 1 tab PO DAILY 03/09/21 [History] timoloL maleate [timoloL maleate 0.5% Gel] 1 applic BOTH EYES BID 03/09/21 [History] Acetaminophen Tab [Tylenol] 650 mg PO Q4HR PRN tab 03/12/21 [Rx] Metoprolol Tartrate [Lopressor] 12.5 mg PO BID #60 tab 03/12/21 [Rx] Follow up Appointment(s)/Referral(s): Jak Thomas NPC [Nurse Practitioner] - 04/13/21 9:00 am (Please follow-up with Cayden or Nay in the valve clinic on [address], [address], [place], [place] after you have had your echocardiogram completed at Dr. Carl's office.) Martínez Vega DO [Primary Care Provider] - As Needed Rishi Carl MD [STAFF PHYSICIAN] - 03/19/21 10:45 am (03/19/2021 at 10:45 am appointment is for groin check; you also have an appointment for an echocardiogram w/ Dr. Carl on 04/13/2021 at 7:[address] Carl's office.) Patient Instructions/Handouts: Transcatheter Aortic Valve Replacement (DC) Activity/Diet/Wound Care/Special Instructions: DISCHARGE INSTRUCTIONS: 1. No driving for 1 week, or until physician gives their ok. 2. No lifting, pushing, or pulling more than 5-10 pounds for 1 week. 3. Hold both groins when you cough or sneeze for the next 2 weeks. Bruising is common, but report increased swelling, pain or fever >101F 4. Shower daily. No pool, hot tub, or bathtub for 1 week 5. No powders, lotions, ointments on incisions. 6. No straining, including for bowel movements. Use stool softner if necessary 7. Stairs are not an issue. Go slowly, using handrail and take 1 step at a time. Ambulate several times daily 8. Continue pain control per as needed orders. 9. Take only the medications listed on your discharge form 10. Eat low salt (limited to 2 grams or 2000 milligrams) daily, avoid adding salt, avoid canned/processed foods 11. Take your weight daily in the morning and record, bring with you to your follow up appointments 12. Keep all follow up appointments. You will need a valve clinic appointment at 30 days and 1 year post procedure for follow up 13. You have been referred to and are expected to begin Cardiac Rehab in approximately 4 weeks. 14. You will need antibiotics prior to any dental work, including cleanings, and any surgeries to prevent Endocarditis (bacterial infection in your heart) For any questions or concerns please call your valve coordinators: Nay @ or Cayden @ Discharge Disposition: HOME SELF-CARE
[2021-03-12 13:18] VITALS: BP 146/67; PULSE 71; RESP 15; TEMP 97.1
[2021-03-12] MEDS ORDERED: PRAVASTATIN SODIUM 20 MG TAB PO SCH (21:00)
[2021-03-12] MEDS ORDERED: SENNOSIDES-DOCUSATE SODIUM 1 EACH TAB PO SCH (21:00)
== END 2021-03-12 14:03 | disposition home or self-care (01) | DRG 267 ==
LOC: 2ORMAIN 05:44 → 2SICU 09:48
PROVIDERS: ADMIT Internal Medicine Interventional Cardiology; ATTEND Internal Medicine Interventional Cardiology
PROC: 5A1223Z Performance of Cardiac Pacing, Continuous (ICD-10-PCS; 2021-03-11)
PROC: B3101ZZ Fluoroscopy of Thoracic Aorta using Low Osmolar Contrast (ICD-10-PCS; 2021-03-11)
PROC: B246ZZ4 Ultrasonography of Right and Left Heart, Transesophageal (ICD-10-PCS; 2021-03-11)
PROC: 04HK33Z Insertion of Infusion Device into Right Femoral Artery, Percutaneous Approach (ICD-10-PCS; 2021-03-11)
PROC: 04HL33Z Insertion of Infusion Device into Left Femoral Artery, Percutaneous Approach (ICD-10-PCS; 2021-03-11)
PROC: 02RF38Z Replacement of Aortic Valve with Zooplastic Tissue, Percutaneous Approach (ICD-10-PCS; principal; 2021-03-11 08:00)
DX: I35.0 Nonrheumatic aortic (valve) stenosis (principal); I50.32 Chronic diastolic (congestive) heart failure; I13.0 Hypertensive heart and chronic kidney disease with heart failure and stage 1 through stage 4 chronic kidney disease, or unspecified chronic kidney disease; J98.11 Atelectasis; I25.10 Atherosclerotic heart disease of native coronary artery without angina pectoris; Z00.6 Encounter for examination for normal comparison and control in clinical research program; Z20.822 Contact with and (suspected) exposure to COVID-19; E11.22 Type 2 diabetes mellitus with diabetic chronic kidney disease; E66.9 Obesity, unspecified; I87.2 Venous insufficiency (chronic) (peripheral); H91.90 Unspecified hearing loss, unspecified ear; N18.2 Chronic kidney disease, stage 2 (mild); M19.90 Unspecified osteoarthritis, unspecified site; J98.6 Disorders of diaphragm; E11.51 Type 2 diabetes mellitus with diabetic peripheral angiopathy without gangrene; E78.5 Hyperlipidemia, unspecified; G47.33 Obstructive sleep apnea (adult) (pediatric); Z87.898 Personal history of other specified conditions; Z79.82 Long term (current) use of aspirin; Z79.02 Long term (current) use of antithrombotics/antiplatelets; Z79.84 Long term (current) use of oral hypoglycemic drugs; Z79.899 Other long term (current) drug therapy; Z91.19 Patient's noncompliance with other medical treatment and regimen; Z96.651 Presence of right artificial knee joint; Z87.19 Personal history of other diseases of the digestive system; Z98.42 Cataract extraction status, left eye; Z98.41 Cataract extraction status, right eye; Z98.61 Coronary angioplasty status; Z88.8 Allergy status to other drugs, medicaments and biological substances; Z88.1 Allergy status to other antibiotic agents
CPT/HCPCS: 33361; 71045; 80053; 82330; 83735; 85025; 85610; 85730; 86850; 86900; 86901; 86920; 87635; 93306; 93312; 93320; 93325

== ENCOUNTER → 2021-04-13 | Outpatient (CLI) | payer MEDICARE, OTHER ==
[2021-04-13 14:45] LABS: Basophils # (A) 0.02 X 10*3/uL (0.00-0.10); Basophils % (A) 0.2 %; Eosinophils % (A) 2.1 %; HCT 37.7 % (39.6-50.0); HGB 11.6 g/dL (13.0-17.0); Lymphocytes # (A) 1.19 X 10*3/uL (0.90-5.00); Lymphocytes % (A) 12.8 %; MCH 30.3 pg (27.0-32.0); MCHC 30.8 g/dL (32.0-37.0); MCV 98.4 fL (80.0-97.0); Mean Platelet Volume 10.5 fL (9.5-12.2); Monocytes # (A) 0.84 X 10*3/uL (0.20-1.00); Neutrophils # (A) 7.01 X 10*3/uL (1.80-7.70); Neutrophils % (A) 75.4 %; Platelet Count 204 X 10*3/uL (140-440); RBC 3.83 X 10*6/uL (4.40-5.60); WBC 9.31 X 10*3/uL (4.50-10.00)
[2021-04-13 16:19] LABS: African American GFR (CKD) 45.4 (60.0-200.0); Anion Gap 15.2 mmol/L (4.00-12.00); BUN/Creat Ratio 25.65 Ratio (12.00-20.00); Blood Urea Nitrogen 43.6 mg/dL (9.0-27.0); Calcium 10.2 mg/dL (8.7-10.3); Carbon Dioxide 24.8 mmol/L (21.6-31.8); Non-African American GFR(CKD) 39.1 (60.0-200.0); Potassium 4.3 mmol/L (3.5-5.5)
== END | disposition home or self-care (01) ==
LOC: LABWHC1 08:44
PROVIDERS: ATTEND Thoracic Surgery (Cardiothoracic Vascular Surgery)
DX: I35.1 Nonrheumatic aortic (valve) insufficiency (principal)
CPT/HCPCS: 36415; 80048; 85025